=== PATIENT | female | born 1975 | race Caucasian/White ===

== ENCOUNTER 2025-06-12 21:13 | Emergency (ER) | payer OTHER, SELFPAY ==
--- OUTSIDE RECORDS SUMMARY | 2025-05-28 07:45 | XMS_ITS | Continuity of Care Document ---
Author Organization [facility] Address [address] [place] [address] Phone Care Team Providers Care [facility] Parent Name Role Phone Luz Maria PATRICIO, Dalia Unavailable Unavailable Allergies, Adverse Reactions, Alerts Substance Reaction Status Criticality No Known Allergies Active No Inform ation Medications Medication Instructions Dosage Effective Dates (start - stop) Status Comments benzonatate 200 mg capsule take 1 capsul e by oral route twice daily as needed for cough - Active hydroxyzine HCl 10 mg tablet Take one tab at bedtime - Active ferrous gluconate 324 mg (38 mg iron) tablet take one tablet 3 times daily - Active amlodipine 10 mg tablet take 1 tablet by oral route every day 10 MG - Active hydrochlorothiazide 12.5 mg tablet take 1 tablet by oral route every day 12.5 MG - Active ProAir RespiClick 90 mcg/actuation breath activated inhale 2 puff by inhalation route every 4 - 6 hours as needed as needed 180 MCG - Active Advance Directives Directive Yes / No Effective Date File Name No Information Encounters Encounter Description Practice Location Reason(s) For Visit Diagnoses Date Provider [facility], [address], [id number], [place] tel:[phone] [facility] No Information Luz Maria Gómez. [facility] [place], [address], [place]. tel:[phone] [facility], [facility] [address], [id number], [place] tel: [facility] Amand[facility]em Follow up (chief complaint) Encounter for follow-upElevated blood pressure readingUterine leiomyoma, unspecified locationThickened endometrium 5 Andrew Sorensen. [facility], [place], [address], [place]. tel: [phone] [facility], [facility], [place], [place], [id number], [place] tel: [facility] No Information 5 Luz Maria Gómez. [facility] [address], [place], [address], [place]. tel: [phone] [facility], [facility] [address], [place], [place], [id number], [place] tel: [facility] cough (chief complaint)ER follow up (chief complaint)hyp ertension (chief complaint) Body mass index [BMI] 32.0-32.9, adultHospital discharge follow-upDry coughEssential hypertension 5 Luz Maria Gómez. [facility] [address], [place], [address], [place]. tel: [phone] [facility], [facility] [place], [id number], [place] tel: [facility] Ajay annual exam (chief complaint)phyllis ast (chief complaint)men orrhagia with regular cycles (chief complaint) Body mass index [BMI] 32.0-32.9, adultEncounter for gynecological examination (general) (routine) with abnormal findingsEncounter for other screening for malignant neoplasm of breastMenorrhagia with regular cycleUrinary incontinence, mixedEncounter for other general counseling and advice on contraceptionHistory of uterine fibroidHot flashes 5 Andrew Sorensen. [facility], [place], [address], [place]. tel: [phone] [facility], [facility], [place], [id number], [place] tel: [facility] Follow up (chief complaint)hyp ertension (chief complaint)hyp erlipidemia (chief complaint)ane barry (chief complaint) DyslipidemiaEssential hypertensionIron deficiency anemia, unspecifiedPrediabetes Body mass index [BMI] 33.0-33.9, adultIrregular menstrual bleeding 5 Luz Maria Romocayla. [address], [place], [address], [place]. tel: [phone] [facility], [address], [place], [place], [id number], [place] tel: [phone] [facility] Guaiac card return (chief complaint) Encounter for screening for malignant neoplasm of colon 4 [facility]. [address], [place], [address], [place]. tel: [phone] [facility], [address], [place], [place], [id number], [place] tel: [phone] [facility] results (chief complaint)hyp ertension (chief complaint)ane barry (chief complaint) Body mass index [BMI] 33.0-33.9, adultEssential hypertensionIron deficiency anemia, unspecifiedPrediabetes Encounter for screening for malignant neoplasm of colon 4 Luz Maria Dalia. [address], [place], [address], [place]. tel: [phone] [facility], [address], [place], [place], [id number], [place] tel: [phone] [facility] No Information 4 Luz Maria Gómez. [address], [place], [address], [place]. tel: [phone] [facility], [address], [place], [place], [id number], [place] tel: [phone] [facility] pap smear (chief complaint) Body mass index [BMI] 32.0-32.9, adultCervical cancer screeningVaginal drynessEncounter for test, result negative 4 Andrew Sorensen. [address], [place], [address], [place]. tel: [phone] [facility], [address], [place], [place], [id number], [place] tel: [facility] follow up (chief complaint) Essential hypertensionFibroidsMi ld anemiaH. pylori infection 4 No Information [facility], [facility] [address], [place], [place], [id number], [place] tel:[phone] [facility] No Information 4 No Information [facility], [facility] [address], [place], [place], [id number], [place] tel:000 [facility] No Information 3 No Information [facility], [facility] [address], [place], [place], [id number], [place] tel: [facility] Follow up (chief complaint) Body mass index [BMI] 33.0-33.9, adultH. pylori infectionIron deficiency anemia, unspecifiedEssential hypertension 3 No Information [facility], [facility] [place], [id number], [place] tel:000 [facility] ([facility] complaint) Encounter for test, result negativeEncounter for gynecological examination (general) (routine) without abnormal findingsScreening mammogram for breast cancer 3 Blair Valencia. [facility] [address], [place], [address], [place]. tel: [phone] [facility], [facility] [address], [place], [id number], [place] tel: [facility] Follow up (chief complaint) Body mass index [BMI] 32.0-32.9, adultEssential hypertensionFibroidsH. pylori infectionOther iron deficiency anemia 3 No Information [facility], [facility] [place], [id number], [place] tel: [facility] Uterine leiomyoma, unspecified location 3 No Information [facility], [facility] [place], [id number], [place] tel: [facility] Guaiac card return (chief complaint) Encounter for screening for malignant neoplasm of colon 3 [facility]. [address], [place], [address], [place]. tel: [phone] [facility], [address], [place], [place], [id number], [place] tel: [phone] [facility] preventive exam (chief complaint)n ew patient pmh (chief complaint) Body mass index [BMI] 32.0-32.9, adultEncounter for screening for respiratory tuberculosisIron deficiency anemia, unspecified iron deficiency anemia typeFibroidsAnnual physical examVaginal drynessChronic GERDColon cancer screening 3 No Information [facility], [address], [place], [place], [id number], [place] tel: [phone] [facility] No Information 3 Luz Maria Demetriusaa. [address], [place], [address], [place]. tel: [phone] [facility], [address], [place], [place], [id number], [place] tel: [phone] [facility] hypertension (chief complaint)ane barry (chief complaint) Body mass index [BMI] 32.0-32.9, adultEssential hypertensionMild anemia 3 Luz Maria Hanaa. [address], [place], [address], [place]. tel: [phone] [facility], [address], [place], [place], [id number], [place] tel: [phone] [facility] hypertension (chief complaint)res ults (chief complaint) Body mass index [BMI] 32.0-32.9, adultEssential hypertensionIron deficiency anemia, unspecifiedEncounter for screening for other disorder 2 Luz Maria Hanaa. [address], [place], [address], [place]. tel: [phone] [facility], [address], [place], [place], [id number], [place] tel: [phone] [facility] No Information 2 Luz Maria Hanaa. [address], [place], [address], [place]. tel: [phone] [facility], [address], [place], [id number], [place] tel: [facility] Guaiac card return (chief complaint) Encounter for screening for malignant neoplasm of colon 2 [facility]. [address] [facility], [place], [address], [place]. tel: [phone] [facility], [address], [place], [place], [id number], [place] tel:000 [facility] hypertension (chief complaint)Res ults (chief complaint)ane barry (chief complaint)hyp erlipidemia (chief complaint) Body mass index [BMI] 32.0-32.9, adultEssential hypertensionDyslipidem iaIron deficiency anemia, unspecifiedPrediabetes Colon cancer screeningBreast cancer screening 2 Luz Maria Romo. [facility], [place], [address], [place]. tel: [phone] [facility], [address], [place], [place], [id number], [place] tel: [facility] No Information 2 Luz Marialamine Romoaa. [address], [place], [address], [place]. tel: [phone] [facility], [address], [place], [place], [id number], [place] tel:000 [facility] lab results (chief complaint)hyp ertension (chief complaint)ane barry (chief complaint) Essential hypertensionIron deficiency anemia, unspecifiedBody mass index [BMI] 32.0-32.9, adultPrediabetesDyslip idemia 2 Luz Maria Demetriusaa. [address], [place], [address], [place]. tel: [phone] [facility], [address], [place], [place], [id number], [place] tel:000 [facility] No Information 2 [facility]. [address], [place], [address], [place]. tel: [phone] [facility], [address], [place], [place], [id number], [place] tel:000 [facility] virtual visit (chief complaint)Pap smear results (chief complaint)hyp ertension (chief complaint) Encounter to discuss test resultsEssential hypertension 1 [facility]. [address], [place], [address], [place]. tel: [phone] [facility], [address], [place], [place], [address], [place] tel:000 [facility] pap test (chief complaint)hyp ertension (chief complaint)Lab results (chief complaint) Body mass index [BMI] 32.0-32.9, adultEncounter for screening for malignant neoplasm of cervixEssential hypertensionOther iron deficiency anemiaPrediabetes 1 [facility]. [address], [place], [address], [place]. tel: [phone] [facility], [address], [place], [place], [id number], [place] tel: [facility] joint pain (chief complaint)hyp ertension (chief complaint) Body mass index (BMI) 33.0-33.9, adultEssential hypertensionMultiple joint painBreast cancer screening 1 [facility]. [address], [place], [address], [place]. tel: [phone] [facility], [address], [place], [place], [id number], [place] tel:000 [facility] GERD (chief complaint)Lab results (chief complaint)hyp ertension (chief complaint) Body mass index (BMI) 31.0-31.9, adultIron deficiency anemia, unspecifiedH. pylori infectionEssential hypertension February- 9 [facility]. [address], [place], [address], [place]. tel: [phone] [facility], [address], [place], [place], [id number], tel: [facility] No Information [facility]. [facility] [address], [place], [address], . tel: [phone] [facility], [facility] [address], [place], [place], [address], tel: [facility] Establish care (chief complaint)PARMJIT D (chief complaint) Body mass index (BMI) 31.0-31.9, adultEncounter for screening for diabetes mellitusGastroesophage al reflux disease, esophagitis presence not specifiedScreening for hyperlipidemiaBreast cancer screening 9 [facility]. [facility] [address], [place], [address], . tel: [phone] [facility], [facility] [address], [place], [place], [id number], tel: [facility] Anemia (chief complaint) Body mass index (BMI) 30.0-30.9, adultPernicious anemiaOther obesity due to excess calories 6 No Information [facility], [facility] [address], [place], [place], [address], [place] tel: [facility] Follow Up of anemia (chief complaint) Body mass index (BMI) 30.0-30.9, adultPernicious anemiaUterine leiomyoma, unspecified location 5 No Information [facility], [facility] [address], [place], [place], [id number], [place] tel: [phone] [facility] No Information 5 No Information [facility], [facility] [address], [place], [place], [id number], [place] tel: [facility] Follow up visit for Lab Results (chief complaint)Ref erral Request for Mammography (chief complaint) Iron deficiency anemiaVitamin D deficiencyFatigueEncou nter for gynecological examination 5 No Information [facility], [facility] [address], [place], [place], [id number], [place] tel: [phone] [facility] Iron deficiency anemia 5- 5 No Information [facility], [facility] [place], [id number], tel: [phone] [facility] No Information 8- 5 No Information [facility], [address] [place] [address] [place], [address], tel: [phone] [facility] Preventive exam (chief complaint) ROUTINE MEDICAL EXAMInsomniaTendonitis Joint pain 7-201 5 No Information [facility], [facility] [address] [facility], [place], [place], [id number], [place] tel: [phone] [facility] HYPOTHYROIDISMPELVIC PAINOVERNUTRITION (POLYPHAGIN) 6-200 8 Provider [employer]. . [facility], [address] [place] [address], [id number], tel: [phone] [facility] HYPOTHYROIDISMOVERNUTR ITION (POLYPHAGIN) 8-200 8 Provider [employer]. . [facility], [facility] [address] [place], [place], [id number], tel: [phone] [facility] HYPOTHYROIDISMPELVIC PAINOVERNUTRITION (POLYPHAGIN)SCREENING ROUTINE EXAMSCREENING FOR BREAST CANCERSCREENING FOR CERVICAL CANCER 6-200 8 Provider [employer]. . [facility], [address] [place] [address] [place], [id number], tel: [phone] [facility] HYPOTHYROIDISM 6200 8 Provider [employer]. . [facility], [facility] [address], [address], tel: [phone] [facility] HYPOTHYROIDISM 6-200 7 Provider [employer]. . Family History Family Member Type Diagnosis Age At Onset Mother Problem (finding) Heart disease Mother Problem (finding) hypertension Father Problem (finding) diabetes melli tus type 2 (Cause Of ) Mother Problem (finding) raised blood lipids Immunizations Vaccine Date Status Comments TDAP administered Source: [facility] unization Record Payers Payer name Insurance type Covered alliance party ID Authoriza tion(s) SELF PAY Category A 09 [id number] SELF PAY Category A [id number] [employer] [place] [employer] [facility] [id number] Social History Type Description Quantity Date Captured Comments Alcohol Use Details Unknown Caffeine Use Details Unknown Tobacco Use Status No Information Smoking Status No Information Sex Female Sexual Orientation Straight or heterosexual Gender Identity Female Chief Complaint And Reason For Visit No Information Plan Of Treatment Date Type Action Status Goal Unhealthy drug u se screening. Due on due Goal Flu Vaccine. Due on due Goal Hepatitis C screening due Goal Occult Blood, [place], [place] (FIT). Due on due Goal MMR Vaccine. Due on due Goal Mammogram. Due on due Goal Depression scree yobani. Due on due Goal Cervical Cancer Screening. Due on due Goal FOBT. Due on due Goal Tdap due Goal Tobacco screening. Due on due Goal Lipid panel due Goal Occult Blood, [place], [place] (FIT). Due on due Goal Depression scree yobani. Due on due Goal Mammogram. Due on due Goal Cologuard. Due on due Goal Unhealthy drug u se screening. Due on due Goal MMR Vaccine. Due on due Goal Hepatitis C screening due Goal Tobacco screening. Due on due Goal Lipid panel. Due on due Goal FOBT. Due on due Goal Cervical Cancer Screening. Due on due Goal Tdap due Goal Flu Vaccine. Due on due Goal Tobacco screening. Due on due Goal Hepatitis C screening due Goal FOBT. Due on due Goal Tdap due Goal Occult Blood, [place] m[place], [place] (FIT). Due on due Goal Cervical Cancer Screening. Due on due Goal Cologuard. Due on due Goal Lipid panel. Due on due Goal Depression scree yobani. Due on due Goal Flu Vaccine. Due on due Goal MMR Vaccine. Due on due Goal Mammogram. Due on due Goal Unhealthy drug u se screening. Due on due Goal Depression scree yobani. Due on due Goal Cologuard. Due on due Goal FOBT. Due on due Goal Flu Vaccine. Due on due Goal Mammogram. Due on due Goal Unhealthy drug u se screening. Due on due Goal Occult Blood, [place], [place] (FIT). Due on due Goal Tobacco screening. Due on due Goal Hepatitis C screening due Goal MMR Vaccine. Due on due Goal Cervical Cancer Screening. Due on due Goal Lipid panel. Due on due Goal Tdap due Goal Dietary manageme nt education, guidance, and counseling completed Goal FOBT (3 Cards Gi siria). Due on due Goal MMR Vaccine. Due on due Goal Colonoscopy. Due on due Goal Flu Vaccine. Due on due Goal Cologuard. Due on due Goal Mammogram. Due on due Goal Occult Blood, Fe m[place], [place] (FIT). Due on due Goal Depression scree yobani. Due on due Goal Tdap due Goal Cervical Cancer Screening. Due on due Goal Flu Vaccine. Due on due Goal MMR Vaccine. Due on due Goal FOBT (3 Cards Gi siria). Due on due Goal Mammogram. Due on due Goal Occult Blood, Fe m[place], [place] (FIT). Due on due Goal Depression scree yobani. Due on due Goal Tdap due Goal Cervical Cancer Screening. Due on due Goal Colonoscopy. Due on due Goal Cologuard. Due on due Goal Dietary manageme nt education, guidance, and counseling completed Goal FOBT (3 Cards Gi siria). Due on due Goal Mammogram. Due on due Goal Occult Blood, Fe m[place], [place] (FIT). Due on due Goal Depression scree yobani. Due on due Goal Tdap due Goal Cervical Cancer Screening. Due on due Goal MMR Vaccine. Due on due Goal Colonoscopy. Due on due Goal Flu Vaccine. Due on due Goal Cologuard. Due on due Goal Cologuard. Due on due Goal Flu Vaccine. Due on due Goal Colonoscopy. Due on due Goal MMR Vaccine. Due on due Goal Mammogram. Due on due Goal Occult Blood, Fe m[place], [place] (FIT). Due on due Goal Depression scree yobani. Due on due Goal Tdap due Goal Cervical Cancer Screening. Due on due Goal Dietary manageme nt education, guidance, and counseling completed Goal Cologuard. Due on due Goal Mammogram. Due on due Goal Occult Blood, Fe m[place], [place] (FIT). Due on due Goal Depression scree yobani. Due on due Goal Tdap due Goal Cervical Cancer Screening. Due on due Goal Colonoscopy. Due on due Goal Flu Vaccine. Due on due Goal FOBT (3 Cards Gi siria). Due on due Goal MMR Vaccine. Due on due Goal Cologuard. Due on 4 due Goal Flu Vaccine. Due on due Goal Colonoscopy. Due on due Goal MMR Vaccine. Due on due Goal FOBT (3 Cards Gi siria). Due on due Goal Mammogram. Due on 6 due Goal Occult Blood, [place] m[place], [place] (FIT). Due on due Goal Depression scree yobani. Due on due Goal Tdap due Goal Cervical Cancer Screening. Due on due Goal Lifestyle education regardin g diet completed Goal Tdap due Goal Occult Blood, Fe m[place], [place] (FIT). Due on due Goal Depression scree yobani. Due on due Goal Mammogram. Due on 4 due Goal MMR Vaccine. Due on due Goal Colonoscopy. Due on due Goal Cologuard. Due on due Goal FOBT (3 Cards Gi siria). Due on due Goal Flu Vaccine. Due on due Goal Cervical Cancer Screening. Due on due Goal Flu Vaccine. Due on due Goal Colonoscopy. Due on due Goal Cologuard. Due on 3 due Goal Tdap due Goal Depression scree yobani. Due on due Goal FOBT (3 Cards Gi siria). Due on due Goal Occult Blood, Fe m[place], [place] (FIT). Due on due Goal Mammogram. Due on 4 due Goal MMR Vaccine. Due on due Goal Cervical Cancer Screening. Due on due Goal Dietary manageme nt education, guidance, and counseling completed Goal Depression scree yobani. Due on due Goal MMR Vaccine. Due on due Goal Tdap due Goal Mammogram. Due on 4 due Goal Cologuard. Due on 3 due Goal Occult Blood, Fe m[place], [place] (FIT). Due on due Goal Colonoscopy. Due on due Goal Flu Vaccine. Due on due Goal FOBT (3 Cards Gi siria). Due on due Goal Cervical Cancer Screening. Due on due Goal Cologuard. Due on 3 due Goal FOBT (3 Cards Gi siria). Due on due Goal Flu Vaccine. Due on due Goal Tdap due Goal Colonoscopy. Due on due Goal Occult Blood, [place] m[place], [place] (FIT). Due on due Goal MMR Vaccine. Due on due Goal Depression scree yobani. Due on due Goal Cervical Cancer Screening. Due on due Goal Mammogram. Due on 4 due Goal Dietary manageme nt education, guidance, and counseling completed Goal Depression scree yobani. Due on due Goal Occult Blood, [place] m[place], [place] (FIT). Due on due Goal Colonoscopy. Due on due Goal MMR Vaccine. Due on due Goal Mammogram. Due on 4 due Goal Flu Vaccine. Due on due Goal FOBT (3 Cards Gi siria). Due on due Goal Tdap due Goal Cologuard. Due on due Goal Cervical Cancer Screening. Due on due Goal Depression scree yobani. Due on due Goal Colonoscopy. Due on due Goal MMR Vaccine. Due on due Goal Occult Blood, [place] m[place], [place] (FIT). Due on due Goal Tdap due Goal Flu Vaccine. Due on due Goal Cologuard. Due on due Goal Mammogram. Due on 4 due Goal FOBT (3 Cards Gi siria). Due on due Goal Cervical Cancer Screening. Due on due Goal Tdap due Goal FOBT (3 Cards Gi siria). Due on due Goal Flu Vaccine. Due on due Goal Cologuard. Due on 3 due Goal Mammogram. Due on 4 due Goal Colonoscopy. Due on due Goal MMR Vaccine. Due on due Goal Occult Blood, [place] m[place], [place] (FIT). Due on due Goal Depression scree yobani. Due on due Goal Cervical Cancer Screening. Due on due Goal Dietary manageme nt education, guidance, and counseling completed Goal Depression scree yobani. Due on due Goal Tdap. Due on due Goal Flu Vaccine. Due on 023 due Goal FOBT (3 Cards Gi siria). Due on due Goal Td vaccine. Due on 23 due Goal Occult Blood, [place] m[place], [place] (FIT). Due on due Goal Mammogram. Due on 4 due Goal MMR Vaccine. Due on due Goal Colonoscopy. Due on due Goal Cologuard. Due on 3 due Goal Cervical Cancer Screening. Due on due Goal Dietary manageme nt education, guidance, and counseling completed Goal Mammogram. Due on 4 due Goal Cervical Cancer Screening. Due on due Goal Depression scree yobani. Due on due Goal Flu Vaccine. Due on due Goal MMR Vaccine. Due on due Goal Cologuard. Due on 2 due Goal Tdap. Due on due Goal Colonoscopy. Due on due Goal FOBT (3 Cards Gi siria). Due on due Goal Td vaccine. Due on due Goal Occult Blood, [place] m[place], [place] (FIT). Due on due Goal Dietary manageme nt education, guidance, and counseling completed Goal Td vaccine. Due on due Goal Cologuard. Due on 2 due Goal Occult Blood, [place] m[place], [place] (FIT). Due on due Goal Tdap. Due on due Goal FOBT (3 Cards Gi siria). Due on due Goal Colonoscopy. Due on due Goal Flu Vaccine. Due on due Goal Depression scree yobani. Due on due Goal Mammogram. Due on 3 due Goal MMR Vaccine. Due on due Goal Cervical Cancer Screening. Due on due Goal Cervical Cancer Screening. Due on due Goal Depression scree yobani. Due on due Goal Mammogram. Due on 3 due Goal MMR Vaccine. Due on due Goal Tdap. Due on due Goal Flu Vaccine. Due on due Goal Colonoscopy. Due on due Goal Occult Blood, [place] m[place], [place] (FIT). Due on due Goal Cologuard. Due on due Goal Td vaccine. Due on due Goal Dietary manageme nt education, guidance, and counseling completed Goal Cervical Cancer Screening. Due on due Goal MMR Vaccine. Due on due Goal Mammogram. Due on 3 due Goal Depression scree yobani. Due on due Goal Td vaccine. Due on due Goal Flu Vaccine. Due on due Goal Tdap. Due on due Goal Dietary manageme nt education, guidance, and counseling completed Goal Depression scree yobani. Due on due Goal MMR Vaccine. Due on due Goal Flu Vaccine. Due on due Goal Td vaccine. Due on due Goal Tdap. Due on due Goal Cervical Cancer Screening. Due on due Goal Tdap. Due on due Goal Flu Vaccine. Due on due Goal MMR Vaccine. Due on due Goal Td vaccine. Due on due Goal Depression scree yobani. Due on due Goal Dietary manageme nt education, guidance, and counseling completed Goal Flu Vaccine. Due on due Goal Depression scree yobani. Due on due Goal Td vaccine. Due on due Goal MMR Vaccine. Due on due Goal Tdap. Due on due Goal Cervical Cancer Screening. Due on due Goal Dietary manageme nt education, guidance, and counseling completed Goal Flu Vaccine. Due on due Goal Tdap. Due on due Goal MMR Vaccine. Due on due Goal Td vaccine. Due on due Goal Depression scree yobani. Due on due Goal Dietary manageme nt education, guidance, and counseling completed Goal Td vaccine. Due on due Goal Depression scree yobani. Due on due Goal Tdap. Due on due Goal MMR Vaccine. Due on due Goal Flu Vaccine. Due on due Goal Dietary manageme nt education, guidance, and counseling completed Goal Dietary manageme nt education, guidance, and counseling completed Goal Dietary manageme nt education, guidance, and counseling completed Referral Referred To: [address], [address] [phone] Ordered: Referrals: Urogynecology. [facility]. Location: [facility]. Evaluate and treat ordered Referral Ordered: Referrals: [facility]. Evaluate and treat ordered Referral Ordered: SCR MAMMO BI INCL CAD ordered Referral Referred To: Annie Pinto MD [address] [place] [address], [id number] [phone] Ordered: Referrals: [facility]. Annie Pinto MD. Location: [facility]. Consult Appointment date/timeframe: 09/11/2023 ordered Referral Ordered: TRANSVAGINAL US, NON-OB ordered Referral Ordered: SCR MAMMO BI INCL CAD Bilateral ordered Appointment Jessy Renteria BOOKED Appointment Jessy Renteria BOOKED Patient Education Safer Sex: Care Instruc tions completed Patient Education A Healthy Lifestyle: Ca re Instructions completed Patient Education A Healthy Lifestyle: Ca re Instructions completed Patient Education A Healthy Lifestyle: Ca re Instructions completed Patient Education DASH Diet: Care Instruc tions completed Patient Education Iron Deficiency Anemia: After Your Vis completed Future Order: Lab Order CBC w/di ff ([id number]), Sent on: Sent Future Order: Lab Order CMP14+LP +Hb A1c+eAG-Panel ([id number]), Sent on: Sent Future Order: Lab Order Iron/TIB C ([id number]), Sent on: Sent Future Order: Lab Order IG Pap, CtNg, AptimaHPV, rfx16/18,45 ([id number]), Scheduled for: Ordered Future Order: Lab Order CBC w/di ff ([id number]), Scheduled for: , Scheduled for: Sent Future Order: Lab Order CMP ([id number]), Scheduled for: , Scheduled for: Sent Future Order: Lab Order FSH and LH ([id number]), Scheduled for: , Scheduled for: Sent Future Order: Lab Order T4 and T SH ([id number]), Scheduled for: , Scheduled for: Sent Future Order: Lab Order H. pylor i Breath Test ([id number]), Scheduled for: , Scheduled for: Sent Future Order: Lab Order CMP14+LP +Hb A1c+eAG-Panel ([id number]), Appointment on: , Sent on: Sent Future Order: Lab Order Iron and TIBC-Panel ([id number]), Appointment on: , Sent on: Sent Future Order: Lab Order Vitamin D, [id number] ([id number]), Appointment on: , Sent on: Sent Future Order: Lab Order Vitamin B12 and Folate-Panel ([id number]), Appointment on: , Sent on: Sent Future Order: Lab Order PSC HOLD FOR [facility] ([id number]), Appointment on: , Sent on: Sent Future Order: Lab Order Anemia P rofile B-Panel ([id number]), Appointment on: , Sent on: Sent Future Order: Lab Order Comp. Me tabolic Panel [id number] ([id number]), Appointment on: , Sent on: Sent Future Order: Lab Order [facility] FOR [facility] ([id number]), Appointment on: , Sent on: Sent History Of Present Illness Encounter Date Complaint History Of Prese nt Illness Follow up Patient here for results hx. of fibroids and anemiaLMP: 2 months ago Results discussed with patient mammogram Density C, declined breast US BI-RADS: 1 negative G/C and vaginitis negative Complaining of urinary incontinence+ UTI treatment sent pt. states she does not need to see specialist doing well after treatment Ferritin: 51Estradiol: 17.3FSH: 28.4LH: 16.7Transvaginal US showed Multiple uterine fibroids Thickened endometrium 20mm Referred to Dr. Cade or Dr. Pinto here at [facility] concerning uterine fibroids, thickened endometrium and management of care hx of EMB per patient hypertension It is currently getting worse. Risk factors include family history HTN, gout or CAD, inactive lifestyle and obesity. The hypertension is exacerbated by stress. Pertinent negatives include dyspnea. ER follow up Dx with pneumoni a completed antibiotic , doing better but still c/o of dry cough , no dyspnea or fever cough Onset: sudden. T he patient describes the cough as dry. It occurs occasionally. The problem has improved. There are no aggravating factors. Associated symptoms include cough. Pertinent negatives include dyspnea, fever, nasal congestion, rhinorrhea, sinus pressure, sore throat and wheezing. Additional information: recent dx of pneumonia. annual exam Currently pregna nt: no. : 2. Parity: Term: 2. Livin. The patient states she uses condoms, male for control. Last LMP was 02/19/2025. Her menses is regular with heavy flow. Negative for dysmenorrhea. Negative for: breast discharge, breast lump(s) and breast pain.Negative for Hormone replacement therapy. Menopausal symptoms negative for: hot flashes, insomnia and night sweats. Pertinent negatives include abnormal bleeding (hematology), abnormal vaginal bleeding, anxiety, decreased libido, depression, difficulty falling sleep, dyspareunia, history of infertility, nocturia, sexual dysfunction, sleep disturbances, urinary incontinence, urinary urgency, vaginal discharge and vaginal itching. Diet high calorie.The patient states her exercise level is moderate. She has not been exposed to passive smoke. She has not been exposed to passive vaping. She does not drink alcohol. Additional information: WWE done today Pt. complaining of heavy menses lasting 4 daysDiscussed the use of NSAIDShx. of fibroids and anemia. menorrhagia with regular cycles breast Pertinent negati ves include asymmetry, bloody discharge, breast pain, clear discharge, dimpling, discharge, fever, greenish discharge, lymphadenopathy, milky discharge, nipple itching, nipple retraction and serous discharge. Additional information: no HRT. Follow up Discussed all la b results in details and answered all questions Hemoglobin 10.2 , MCV 72 , A1c 5.8 , LDL 110 hyperlipidemia The hyperlipidem ia is stable. Risk factors include family history of HTN, poor diet and sedentary life style. Hyperlipidemia management includes improved diet. Pertinent negatives include chest pain, dyspnea, nausea and vomiting. anemia Type of anemia w as acquired for deficiency anemia (iron deficient). The problem is getting worse. Relevant medical history includes history of anemia, menorrhagia and irregular period. Pertinent negatives include abdominal pain, chest pain, chills, dyspnea, fatigue, gait disturbance, nausea and vomiting. hypertension It is currently stable. Risk factors include family history HTN, gout or CAD, inactive lifestyle and obesity. The hypertension is exacerbated by nothing. Pertinent negatives include chest pain, dyspnea, fatigue, nausea and vomiting. Additional information: average blood pressure at home 130/80 Guaiac card return Patient prese nts to clinic with guaiac cards x 3 for testing. results Discussed all la b results in details and answered all questions hemoglobin 10.6 , MCV 75 , low iron , A1c 5.9 , LDL 97 hypertension It is currently stable. Risk factors include family history HTN, gout or CAD, inactive lifestyle and obesity. The hypertension is exacerbated by nothing. Pertinent negatives include chest pain, dyspnea, fatigue, nausea and vomiting. anemia Type of anemia w as acquired for deficiency anemia (microcytic). The problem is stable. Relevant medical history includes history of anemia. Pertinent negatives include abdominal pain, chest pain, chills, dyspnea, fatigue, gait disturbance, nausea and vomiting. Additional information: pt has h/o of h.pylori that got treated , requests to be retested. pap smear Patient had [facility]lene [facility] women exam with Dr Pinto in August LMP: 01/05mammogram results discussed with patient: BI-RADS: 2 benign findingsDoes annual labs with PCP here at [facility] pap smear done today follow up Nurse start time : 9:20 am Nurse end time:Total nurse time:Call back number: [phone] comments : here for lab results reports amlodipine 10mg positive effect denied pain no other concerns Clinical staff spoke with the patient and obtained verbal consent to receive medical care over the telephone, with the understanding that this method of communication is not compliant with all applicable privacy laws and, due to the current COVID-19 emergency, the patient agreed to continue to be provided care in this manner. Patient's identity was verified. Any vital signs documented on this encounter were provided by the patient. Follow up Patient followin g up on B/P and lab results. discussed bp is elevated at home usually 130s/80s- 140s/90s. sedentary lifestyle. taking hctz 12.5mg and amlodipne 5mg every am. denies headaches chest pain browne leg swelling.discussed anemia hgb 9 decreased from last check at 10.5. reports is not taking iron anymore due to not wanting to take it. saw team otr truck driver and was recommended to monitor periods until hits menopause. annual exam Currently pregna nt: no. : 2. Parity: Term: 2. Livin. The patient states she uses condoms, male for control. Last LMP was 09/11/2023. Negative for dysmenorrhea. Negative for: breast discharge, breast lump(s), breast pain and breast self exam. Menopausal symptoms negative for: hot flashes, insomnia, night sweats and vaginal dryness. Associated symptoms include abnormal bleeding (hematology). Pertinent negatives include abnormal vaginal bleeding, anxiety, decreased libido, depression, difficulty falling sleep, dyspareunia, history of infertility, nocturia, sexual dysfunction, sleep disturbances, urinary incontinence, urinary urgency, vaginal discharge and vaginal itching. Diet high calorie.The patient states her exercise level is moderate. The patient does not use tobacco. She has not been exposed to passive smoke. She has not been exposed to passive vaping. She does not drink alcohol. Follow up Patient here for lab and images results, per [facility] H pylori still pending. lab results significant for hgb improved 10.7 from 7.8 at last check about 1 mo ago, vit b12 and folate are normal. is taking iron tablet daily. reports lmp was prior to lab draw at end of May and had heavy flow. Discussed tvus showing large fibroids. referral to team otr truck driver is pending.request refill for amlodipine.patient denied pain no other concerns Guaiac card return Patient prese nts to clinic with guaiac cards x 3 for testing. preventive exam Currently pregna nt: no. : 2. Parity: Term: 2. Livin. The patient states she uses condoms, male for control. Last LMP was 05/03/2023. Diet high calorie.The patient states her exercise level is moderate. The patient does not use tobacco. She has not been exposed to passive smoke. She has not been exposed to passive vaping. She does not drink alcohol. Additional information: Patient here for PE. request results for labsrequest referral for factory superintendent due to pap smear . new patient pmh PMH: anemia, t hnMeds: Femmenesscence macapause, sss tonic, mg, probiotic, hctz 12.5mg, famotidine 20mgPSH: [id number] x2FH: father dm, mother had cervical cancerAll: nkdaMammogram: about 1 year ago julap smear: fobt [id number] lasting about 2 days, May 03 LMP, gets bone pain during period, gets period every mo, for last 5 years not as heavy periods as before. has fibroids. ferrous sulfate causes nausea and can't tolerate. taking otc supplement SSS tonic x 2 weeks. Endorses fatigue, pallor, browne.gerd: daily symptoms of burning epigastric pain with heartburn, takes famotidine 20mg daily in AM and helps symptoms but sometimes has symptoms at night aggravated by spicy foods. denies blood in stool, constipation or melena. hypertension It is currently improving. Risk factors include family history HTN, gout or CAD, inactive lifestyle and obesity. The hypertension is exacerbated by nothing. Pertinent negatives include chest pain, dyspnea, fatigue, headache, nausea and vomiting. anemia Type of anemia w as acquired for deficiency anemia (iron deficient). The problem is stable. Relevant medical history includes history of anemia. Pertinent negatives include abdominal pain, chest pain, chills, dyspnea, fatigue, gait disturbance, headache, nausea and vomiting. results hemoglobin 9.1 - -> 10.5 , MCV 73-- >75 on iron supplement hypertension It is currently stable. Risk factors include family history HTN, gout or CAD, inactive lifestyle and obesity. The hypertension is exacerbated by stress. Pertinent negatives include chest pain, dyspnea, fatigue, headache, nausea, transient weakness and vomiting. Guaiac card return Patient prese nts to clinic with guaiac cards x 3 for testing. Results Hemoglobin 9.1, A1c 5.7 , LDL 106 , Iron 15 , iron saturation 4 hyperlipidemia The hyperlipidem ia is getting worse. Risk factors include family history of HTN, poor diet and sedentary life style. The patient is not adhering to diet for their hyperlipidemia. Pertinent negatives include chest pain, dyspnea, nausea and vomiting. hypertension It is currently getting worse. Risk factors include family history HTN, gout or CAD, inactive lifestyle and obesity. Associated symptoms include fatigue. Pertinent negatives include chest pain, dyspnea, nausea and vomiting. Additional information: no regular blood pressure at home anemia Type of anemia w as acquired for deficiency anemia (iron deficient). The problem is getting worse. Relevant medical history includes history of anemia and menorrhagia. Associated symptoms include fatigue. Pertinent negatives include abdominal pain, chest pain, chills, dyspnea, gait disturbance, nausea and vomiting. lab results Hemoglobin 10.4 -->12.3 , MCV 75 -->84, Iron 17 -->22, iron sat 4-->6A1c 5.7 , LDL 100 hypertension It is currently stable. Risk factors include family history HTN, gout or CAD, inactive lifestyle and obesity. The hypertension is exacerbated by nothing. Pertinent negatives include chest pain, dyspnea, fatigue, nausea and vomiting. anemia Type of anemia w as acquired for deficiency anemia (microcytic). The problem is improving. Relevant medical history includes history of anemia. Pertinent negatives include abdominal pain, chest pain, chills, dyspnea, fatigue, gait disturbance, nausea and vomiting. virtual visit Nurse start time :11:19Nurse end time:11:21Total nurse time:2 minutesCall back number:[phone] staff spoke with the patient and obtained verbal consent to receive medical care over the telephone, with the understanding that this method of communication is not compliant with all applicable privacy laws and, due to the current COVID-19 emergency, the patient agreed to continue to be provided care in this manner. Patient's identity was verified. Any vital signs documented on this encounter were provided by the patient.intake comments: pap results Pap smear results Negative cytol ogy . hypertension It is currently stable. Risk factors include family history HTN, gout or CAD, inactive lifestyle and obesity. The hypertension is exacerbated by nothing. Pertinent negatives include chest pain, dyspnea and transient weakness. pap test Currently pregna nt: no. : 2. Parity: Term: 2. Livin. The patient states she uses condoms, male for control. Diet high calorie.The patient states her exercise level is moderate. She has not been exposed to passive smoke. She has not been exposed to passive vaping. She does not drink alcohol. Lab results Discussed lab re sults Hemoglobin 10.4, MCV 75,iron 17 , A1c 5.7 hypertension It is currently improving. Risk factors include family history HTN, gout or CAD, inactive lifestyle and obesity. The hypertension is exacerbated by nothing. Pertinent negatives include chest pain and dyspnea. hypertension It is currently getting worse. Risk factors include family history HTN, gout or CAD, inactive lifestyle and obesity. The hypertension is exacerbated by nothing. Pertinent negatives include chest pain, headache and transient weakness. joint pain Onset: 1 year ag o. It occurs intermittently. Location: bilateral (multiple joints). There is no radiation. The pain is aching and throbbing. Context: there is no injury. The pain is aggravated by doing nothing. The pain is relieved by mobility and OTC medicines (ibuprofen). Associated symptoms include difficulty initiating sleep and nocturnal pain. Pertinent negatives include decreased mobility, spasms and swelling. Hand Dominance: right. Additional information: sister with lupus. Lab results Hb 10.6, MCV 77, reports heavy period for 2-3 daysPositive H.pylori hypertension It is currently a new diagnosis. Risk factors include family history HTN, gout or CAD and obesity. The hypertension is exacerbated by stress. Pertinent negatives include chest pain, fatigue, headache, hematuria, irregular heartbeat/palpitations and nausea. GERD The severity of the problem is moderate. The problem has not changed. The symptoms are constant. The location is epigastric. The patient reports radiation to the none. The quality of the pain is sharp. Symptoms are not aggravated by alcohol. Associated symptoms include heartburn. Pertinent negatives include fever, flank pain, hematuria and nausea. GERD The severity of the problem is mild. Pain scale: 0/10. The symptoms are intermittent. The location is epigastric. The quality of the pain is burning. These symptoms occur after meals. Symptoms are not aggravated by alcohol. Pertinent negatives include dyspnea, nausea, vomiting and weight loss. Establish care No chronic medic al history but requests screening labs. Anemia The symptom(s) b nicole gradually. The patient describes it as a severity of moderate-severe. Type of anemia was acquired for deficiency anemia (vitamin B12 deficient). The problem is stable. Relevant medical history includes history of anemia and menorrhagia. Pertinent negatives include abdominal pain, amenorrhea, anorexia, black tarry stools, bleeding gums, bone pain, brittle nails, chest pain, chills, cold intolerance, constipation, dark urine, decreased libido, depression, diarrhea, dizziness, dyspnea, fatigue, gait disturbance, headache, hypotension, impaired sense of smell, impotence, irritability, jaundice, joint pain, nausea, numbness, pagophagia, pallor, pica, pigment change, sore mouth, sore tongue, syncope, tachycardia, tingling, vomiting, weakness and weight loss. Follow Up of anemia Type of anem ia was acquired for deficiency anemia (vitamin B12 deficient). The problem is stable. Relevant medical history includes history of anemia. Pertinent negatives include abdominal pain, amenorrhea, anorexia, black tarry stools, bleeding gums, bone pain, brittle nails, chest pain, chills, cold intolerance, constipation, dark urine, decreased libido, depression, diarrhea, dizziness, dyspnea, fatigue, gait disturbance, headache, hypotension, impaired sense of smell, impotence, irritability, jaundice, joint pain, nausea, numbness, pagophagia, pallor, pica, pigment change, sore mouth, sore tongue, syncope, tachycardia, tingling, vomiting, weakness and weight loss. Additional information: Pt has been taking integra plus daily. Pt has more energy and has been working out frequently. Chronic bone pain is significantly reduced however, anemia has not changed much. Will start vit B12 injections today. Follow up visit for Lab Results Referral Request for Mammography Preventive exam Instructions Date Instruction Additional Infor kaley Patient to Follow up with PCP in family at [facility] concerning blood pressurePatient encouraged to decrease salt intakeER precautions given Related to Elevated blood pressure reading Not at goal today Co ntinue Blood pressure medication/s as prescribedCheck blood pressure once or twice daily write it down and bring next visitAvoid canned food, and use low salt diet.Follow up for blood pressure as scheduled in 3 weeks with labs prior or earlier if continue to be more than 140/90 Related to Essential hypertension discussed mostly par t of the recovery from pneumonia Benzonatate as needed Related to Dry cough ER follow up doing better Relate d to Hospital discharge follow-up Giving encouragement to exercise Related to Body mass index [BMI] 32.0-32.9, adult Dietary management e ducation, guidance, and counseling Related to Body mass index [BMI] 32.0-32.9, adult Transvaginal US for [facility] per patient preference ER precautions given Related to Menorrhagia with regular cycle Safe sex practices d iscussed with patient Different barrier methods of control were also discussed patient verbalized understanding Related to Encounter for other general counseling and advice on contraception Patient encouraged t o eat a healthy diet consisting of fruits and vegetablesEncouraged to maintain a healthy weight and exercises at least 30 minutes on most days Education and counseling provided Related to Body mass index [BMI] 32.0-32.9, adult Referred to urogynecology Relate d to Urinary incontinence, mixed Dietary needs education Related to Body mass index [BMI] 32.0-32.9, adult due to uterine fibro idsadvise to start taking ferrous sulfate daily again as hgb has decreased when she stopped taking iron Related to Iron deficiency anemia, unspecified A healthy weight hel ps your body use insulin properly. Eat a balanced diet. This may help you prevent or delay diabetes. Try to eat an even amount of carbohydrate ( Pasta- Bread -Rice) throughout the day. This can help you avoid sudden peaks in blood sugar. Get at least 30 minutes of exercise on most days of the week. Exercise helps control your blood sugar. It also helps you maintain a healthy weight. Walking is a good choice. You also may want to do other activities, such as running, swimming, cycling, or playing tennis or team sports. Related to Prediabetes Advised to maintain a low-fat, low-cholesterol diet. Related to Dyslipidemia Not Controlled in of fice but controlled at home averageContinue Blood pressure medication/s as prescribedCheck blood pressure once or twice daily write it down and bring next visitAvoid canned food, and use low salt diet.RTC if continue to be more than 140/90 Related to Essential hypertension Giving encouragement to exercise Related to Body mass index [BMI] 33.0-33.9, adult Dietary management e ducation, guidance, and counseling Related to Body mass index [BMI] 33.0-33.9, adult improving continue i gary sup 3 times daily Related to Iron deficiency anemia, unspecified A healthy weight hel ps your body use insulin properly. Eat a balanced diet. This may help you prevent or delay diabetes. Try to eat an even amount of carbohydrate ( Pasta- Bread -Rice) throughout the day. This can help you avoid sudden peaks in blood sugar. Get at least 30 minutes of exercise on most days of the week. Exercise helps control your blood sugar. It also helps you maintain a healthy weight. Walking is a good choice. You also may want to do other activities, such as running, swimming, cycling, or playing tennis or team sports. Related to Prediabetes ControlledContinue B lood pressure medication/s as prescribedCheck blood pressure once or twice daily write it down and bring next visitAvoid canned food, and use low salt diet.Follow up for blood pressure in 3 months Related to Essential hypertension Giving encouragement to exercise Related to Body mass index [BMI] 33.0-33.9, adult Dietary management e ducation, guidance, and counseling Related to Body mass index [BMI] 33.0-33.9, adult Patient encouraged t o eat a healthy diet consisting of fruits and vegetablesEncouraged to maintain a healthy weight and exercises at least 30 minutes on most days Education and counseling provided Related to Body mass index [BMI] 32.0-32.9, adult Lifestyle education regarding di et Related to Body mass index [BMI] 32.0-32.9, adult test for eradication is negative . Related to H. 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 Related to Encounter for gynecological examination (general) (routine) without abnormal findings due to uterine fibro idsadvise to start taking ferrous sulfate daily again as hgb has decreased when she stopped taking ironrecheck cbc prior to next visitrtc in 6wk Related to Iron deficiency anemia, unspecified uncontrolledon hctz 12.5mg and amlodipine 5mgdash diet and 150min/wk recommendedincrease amlodipine to 10mg dailykeep bp log bring tto f/urtc in 6wk Related to Essential hypertension copmleted treatment first week of Jul, check h pylori for test of eradication prior to next visit Related to H. 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 pylori infection discussed tvus resul tsanemia has improved 10.7 from 7.8continue iron tablet dailygyn referral is pendingdiscussed contraception management to help regulate blood flow, patient does not wish to start any methods would like to first discuss with gynrtc in 2-3mo w/ labs prior to recheck anemia Related to Fibroids Well controlled, con tinue current medication.Continue exercise goal of 150min per week and DASH diet. Related to Essential hypertension Giving encouragement to exercise Related to Body mass index [BMI] 32.0-32.9, adult Dietary management e ducation, guidance, and counseling Related to Body mass index [BMI] 32.0-32.9, adult on famotidine 20mg d ailycheck for h pylori avoid spicy foods and trigger foodsdiscuss ppi tx at f/u Related to Chronic GERD new pt presenting fo r annual physical examhx of iron deficiency anemiamammogram prefers biennial, recommend repeat Julap smear up to date per chart reviewfobt r3qcmiv screening labstdap todayinfluenza vaccine recommend during flu seasonrtc in 1mo Related to Annual physical exam history of fibroids; but reports periods are pbx supervisor than beforeua unremarkable, no bloodfobt x3 orderedtvus orderedrecheck cbc and iron panel prior to f/udiscussed hgb is severely low and needs to take iron daily, sending ferrous gluconate Related to Iron deficiency anemia, unspecified iron deficiency anemia type start premarin topical Related t o Vaginal dryness Giving encouragement to exercise Related to Body mass index [BMI] 32.0-32.9, adult Dietary management e ducation, guidance, and counseling Related to Body mass index [BMI] 32.0-32.9, adult increase iron rich f ood and iron supplement will recheck labs Related to Mild anemia ControlledContinue B lood pressure medication/s as prescribedCheck blood pressure once or twice daily write it down and bring next visitAvoid canned food, and use low salt diet.Follow up for blood pressure in 6 months with labs prior and as needed Related to Essential hypertension Dietary management e ducation, guidance, and counseling Related to Body mass index [BMI] 32.0-32.9, adult Giving encouragement to exercise Related to Body mass index [BMI] 32.0-32.9, adult Improvingcontinue ir on supplement twice daily Related to Iron deficiency anemia, unspecified Not controlledWill a dd HCZContinue amlodipineTake Blood pressure medication/s as prescribedCheck blood pressure once or twice daily write it down and bring next visitAvoid canned food, and use low salt diet.Follow up for blood pressure in 1 month Related to Essential hypertension Giving encouragement to exercise Related to Body mass index [BMI] 32.0-32.9, adult *Patient aware of co unseling services available Related to Encounter for screening for other disorder Dietary management e ducation, guidance, and counseling Related to Body mass index [BMI] 32.0-32.9, adult Watch your weight. A healthy weight helps your body use insulin properly. Eat a balanced diet. This may help you prevent or delay diabetes. Try to eat an even amount of carbohydrate ( Pasta- Bread -Rice) throughout the day. This can help you avoid sudden peaks in blood sugar. Get at least 30 minutes of exercise on most days of the week. Exercise helps control your blood sugar. It also helps you maintain a healthy weight. Walking is a good choice. You also may want to do other activities, such as running, swimming, cycling, or playing tennis or team sports. Related to Prediabetes Start iron supplement 3 times da yovani Related to Iron deficiency anemia, unspecified Discussed blood pres sure not at goal 130/80Continue Blood pressure medication/s as prescribedCheck blood pressure once or twice daily write it down and bring next visitAvoid canned food, and use low salt diet.Follow up for blood pressure in 3 weeks to recheck and bring log sheet if continue to be high will add another blood pressure medication Related to Essential hypertension Advised to maintain a low-fat, low-cholesterol diet. Related to Dyslipidemia Dietary management e ducation, guidance, and counseling Related to Body mass index [BMI] 32.0-32.9, adult Giving encouragement to exercise Related to Body mass index [BMI] 32.0-32.9, adult Advised to maintain a low-fat, low-cholesterol diet. Related to Dyslipidemia Improvingcontinue ir on supplement twice daily Related to Iron deficiency anemia, unspecified Watch your weight. A healthy weight helps your body use insulin properly. Eat a balanced diet. This may help you prevent or delay diabetes. Try to eat an even amount of carbohydrate ( Pasta- Bread -Rice) throughout the day. This can help you avoid sudden peaks in blood sugar. Get at least 30 minutes of exercise on most days of the week. Exercise helps control your blood sugar. It also helps you maintain a healthy weight. Walking is a good choice. You also may want to do other activities, such as running, swimming, cycling, or playing tennis or team sports. Related to Prediabetes ControlledContinue B lood pressure medication/s as prescribedCheck blood pressure once or twice daily write it down and bring next visitAvoid canned food, and use low salt diet.Follow up for blood pressure in 6 months Related to Essential hypertension Giving encouragement to exercise Related to Body mass index [BMI] 32.0-32.9, adult Dietary management e ducation, guidance, and counseling Related to Body mass index [BMI] 32.0-32.9, adult negative cytologyWil l repeat in 3 yearsreturn if any abnormal vaginal discharge or bleeding Related to Encounter to discuss test results Controlled per home reading and baseline in office reading Continue Blood pressure medication/s as prescribedCheck blood pressure once or twice daily write it down and bring next visitAvoid canned food, and use low salt diet.Follow up in 3 months with labs prior Related to Essential hypertension Follow up in 3 weeks for results Related to Encounter for screening for malignant neoplasm of cervix start daily iron tabs with each meal Related to Other iron deficiency anemia Start Food diaryWatc h your weight. A healthy weight helps your body use insulin properly. Eat a balanced diet. This may help you prevent or delay diabetes. Try to eat an even amount of carbohydrate ( Pasta- Bread -Rice) throughout the day. This can help you avoid sudden peaks in blood sugar. Get at least 30 minutes of exercise on most days of the week. Exercise helps control your blood sugar. It also helps you maintain a healthy weight. Walking is a good choice. You also may want to do other activities, such as running, swimming, cycling, or playing tennis or team sports. Related to Prediabetes ControlledContinue B lood pressure medication/s as prescribedCheck blood pressure once or twice daily write it down and bring next visitAvoid canned food, and use low salt diet. Related to Essential hypertension Giving encouragement to exercise Related to Body mass index [BMI] 32.0-32.9, adult Dietary management e ducation, guidance, and counseling Related to Body mass index [BMI] 32.0-32.9, adult Will check labsOkay to take Tylenol arthritis advised to avoid ibuprofen Related to Multiple joint pain Will start amlodipin eTake Blood pressure medication/s as prescribedCheck blood pressure once or twice daily write it down and bring next visitAvoid canned food, and use low salt diet.Follow up next available for PAP smear and lab results Related to Essential hypertension Giving encouragement to exercise Related to Body mass index [BMI] 33.0-33.9, adult Dietary management e ducation, guidance, and counseling Related to Body mass index [BMI] 33.0-33.9, adult Start iron tx 3 times daily Rela w[place] to Iron deficiency anemia, unspecified Discussed lab result s and treatment plan Related to H. pylori infection New diagnosisWill st art lisinoprilTake Blood pressure medication/s as prescribedCheck blood pressure once or twice weekly write it down and bring next visitAvoid canned food, and use low salt diet.Follow up for blood pressure in 2 weeks Related to Essential hypertension Giving encouragement to exercise Related to Body mass index (BMI) 31.0-31.9, adult Dietary management e ducation, guidance, and counseling Related to Body mass index (BMI) 31.0-31.9, adult Avoid spicy and mariajose to based foodWill check for HpyloriFollow up in 2 weeks for lab results Related to Gastroesophageal reflux disease, esophagitis presence not specified Giving encouragement to exercise Related to Body mass index (BMI) 31.0-31.9, adult Dietary management e ducation, guidance, and counseling Related to Body mass index (BMI) 31.0-31.9, adult Discussed reduced in take of saturated fats (red meat, fried foods, pork, organ meats) and and increase in dietary fiber (oatmeal, 100% whole wheat bread, fruits, vegetables) Exercise encouraged 20-30 min 3-4 times a week (walking, swimming, dancing, etc) Related to Other obesity due to excess calories RTC 1 month for repe at B12 injectionLabs in 2 months with PCP Related to Pernicious anemia Keep follow up appointments with PCP Related to Pernicious anemia Giving encouragement to exercise Related to Body mass index (BMI) 30.0-30.9, adult Dietary management e ducation, guidance, and counseling Related to Body mass index (BMI) 30.0-30.9, adult nascobal weekly unle ss insurance will not cover it then return here monthly for vit B 12 injections Related to Pernicious anemia Giving encouragement to exercise Related to Body mass index (BMI) 30.0-30.9, adult Dietary management e ducation, guidance, and counseling Related to Body mass index (BMI) 30.0-30.9, adult Focus on supplements , increasing protein, nuts, and green leafy vegetables. Related to Fatigue Take Integra Plus da yovani Return in 3 months for lab re-check. Go one week before apt and have lab drawn Related to Iron deficiency anemia Take vitamin D once a week on the same day every weekMake time to get in the sun for short peroids of time Related to Vitamin D deficiency Take melatonin with b-vitamins two to three hours before sleep Related to Insomnia Take steroids for on e weekIncrease daily intake of olive oil and garlic Related to Tendonitis Add glucosamine/hailey dritin (500mg) daily to supplements Related to Joint pain Assessments Type Assessment Date No Information
--- NOTE | ~2025-06-12 | CT_ITS ---
CLINICAL HISTORY: PE rule out CTA chest with 3-D postprocessing Comparison: None available Findings: Study quality is adequate for the diagnosis of pulmonary embolism. No pulmonary embolism. Heart size within normal limits. RV/LV ratio is normal. No calcified coronary artery disease. No aortic dissection or aneurysm. No calcified atherosclerotic disease. No lymphadenopathy. Mild increased subpleural reticulation. Subsegmental atelectasis versus linear scarring. Mild amount of clustered ground-glass opacities in the right upper lobe measuring up to 4 mm, likely infectious/inflammatory No pneumothorax or pleural effusion. No acute osseous or soft tissue abnormality. No acute pathology in the imaged portion of the upper abdomen. Low attenuating lesion in the liver measuring 1.8 cm with peripheral nodular enhancement which could be a hemangioma. Impression: No pulmonary embolism. Mild amount of clustered ground-glass opacities in the right upper lobe measuring up to 4 mm, likely infectious/inflammatory. No follow up is required. This document has been electronically signed by: Sallie Sams MD on 06/13/2025 02:25:23
[2025-06-12 21:15] VITALS: BP 131/65; PULSE 67; RESP 16; TEMP 36.6; O2SAT 100; BMI 20.2
--- NOTE | 2025-06-12 21:22 | ECG_ITS ---
Test Reason : ARRHYTHMIA Blood Pressure : */* mmHG Vent. Rate : 58 BPM Atrial Rate : 58 BPM P-R Int : 154 ms QRS Dur : 96 ms QT Int : 416 ms P-R-T Axes : 45 71 57 degrees QTcB Int : 408 ms Sinus bradycardia Incomplete right bundle branch block Borderline ECG No previous ECGs available Referred By: Generic ED Physician Electronically Signed By: MICK OSORIO
[2025-06-12 22:09] LABS: MANUAL DIFF FLAG NO
[2025-06-12 22:18] LABS: Hematocrit 36.9 % (37.0-47.0); Hemoglobin 12.6 g/dl (12.0-16.0); Imm Gran Abs Auto 0.02 X10*3/uL (0.00-0.03); Imm Gran Pct Auto 0.4 % (0.0-0.4); Lymphocytes Absolute Auto 2.8 X10*3/uL (1.2-4.9); Mean Corpuscular HGB Conc 34.1 g/dl (31.0-35.0); Mean Corpuscular Hemoglobin 30.4 pg (27.0-33.0); Mean Corpuscular Volume 88.9 fL (80.0-98.0); NRBC Abs Auto 0.000 X10*3/uL (0.0-0.012); NRBC Pct Auto 0.0 /100WBC (0.0-0.2); Platelet Count 239 X10*3/uL (160-400); Red Blood Count 4.15 X10*6/uL (4.20-5.50); White Blood Count 5.6 X10*3/uL (4.8-10.8)
--- OUTSIDE RECORDS SUMMARY | 2025-06-12 22:30 | XMS_ITS | Encounter Summary ---
Author Organization Located Within [facility] Address [address] [place] [address] [place] [address] Phone Care Team Providers Care Terminal Operator Name Role Phone Betzy Nails MD Unavailable Betzy Nails MD Primary Care Provider Betzy Nails MD Unavailable Betzy Nails MD Primary Care Provider [phone] Solange Pollack MD Unavailable [phone] Encounter Details Date Type Department Care Team (Late st Contact Info) Description 04/12/2022 Transcribe Orders [facility] [address] [place] [address] Selvin Mehta MD [address] [place] [address] [id number] [email or web address] Social History Tobacco Use Types Packs/Day Years Used Date Smoking Tobacco: Never Smokeless Tobacco: Never Comments:Prior marijuana Comments Unknown Sex and Gender Information Value Date Recorded Sex Assigned at Female 12/29/2020 3:18 PM EDT Legal Sex Female 9:26 PM EDT Gender Identity Genderqueer/Queer 12/29/2020 3:1 8 PM EDT Sexual Orientation Queer 12/29/2020 3: 18 PM EDT documented as of this encounter Plan of Treatment Upcoming Encounters Date Type Department Care Team (Late Contact Info) Description 06/24/2025 6:45 AM EDT Office Visit [address] [address] Betzy Nails MD [address] [place] [address] [email or web address] Nhung Odom, PT [address] [place] [address] [email or web address] 06/29/2025 8:15 AM EDT Office Visit [address] [address] Selvin Grant MD [address] [place] [address] Nhung Odom, PT [address] [place] [address] [email or web address] 07/01/2025 4:45 PM EDT Office Visit [address] [address] Betzy Nails MD [address] [place] [address] [email or web address] Nhung Odom, PT [address] [place] [address] [email or web address] 07/06/2025 4:45 PM EDT Office Visit [address] [address] Betzy Nails MD [address] [place] [phone] [email or web address] Nhung Odom, PT [address] [place] [address] [email or web address] 07/09/2025 12:00 PM EDT Office Visit [address] [address] Betzy Nails MD [address] [place] [phone] [email or web address] Nhung Odom, PT [address] [place] [address] 07/13/2025 4:00 PM EDT Office Visit [address] [address] Betzy Nails MD [address] [place] [address] [email or web address] Nhung Odom, PT [address] [place] [address] [email or web address] 07/16/2025 12:00 PM EDT Office Visit [address] [address] Betzy Nails MD [address] [place] [address] [email or web address] Nhung Odom, PT [address] [place] [address] 07/27/2025 8:15 AM EDT Office Visit [address] [address] Selvin Grant MD [address] [place] [address] [email or web address] Nhung Odom, PT [address] [place] [address] [email or web address] 08/02/2025 3:15 PM EDT Office Visit [facility] [address] [place] [address] Selvin Grant MD [address] [place] [address] [phone] Corinnaphill Nhung, PT [address] [place] [address] 08/05/2025 1:45 PM EDT Office Visit [facility] [address] [place] [address] Selvin Grant MD [address] [place] [address] [phone] Nhung Odom, PT [address] [place] [address] documented as of this encounter Visit Diagnoses Not on filedocumented in this encounter Care Teams Terminal Operator Relationship Specialty Start Date End Date Betzy Nails MD PCP - General 10/17/17 01/08/24 Betzy Nails MD [address] [place] [address] PCP - General Family Medicine 01/09/24 Betzy Nails MD Historical LMR Provider 08/01/17 Betzy Nails MD [address] [place] [address] [email or web address] Insurance Assigned Provider 02/15/18 06/22/23 Solange Pollack MD [address] [place] [address], [place] [address] [email or web address] Obstetrics and Gynecology 02/27/24 documented as of this encounter Additional Source Comments The information contained in this document represents components of the legal health record. It is not the complete legal health record.Located Within [facility]
--- OUTSIDE RECORDS SUMMARY | 2025-06-12 22:30 | XMS_ITS | Encounter Summary ---
Author Organization [facility] Address [address] [place] [address] [place] [phone] Phone Care Team Providers Care Line Person Name Role Phone Betzy Nails MD Unavailable [phone] Betzy Nails MD Primary Care Provider [phone] Betzy Nails MD Unavailable [phone] Betzy Nails MD Primary Care Provider [phone] Solange Pollack MD Unavailable [phone] Encounter Details Date Type Department Care Team (Late st Contact Info) Description 04/24/2023 Procedure Pass OR Admitting Dept - Virtual Department [address] [place] [address] Social History Tobacco Use Types Packs/Day Years Used Date Smoking Tobacco: Never Smokeless Tobacco: Never Comments:Prior marijuana Alcohol Use Standard Drinks/Week Comments Yes 3 (1 standard drink = 0.6 oz pur e alcohol) Education Answer Date Recorded Are you interested in more education? Not on ki e 02/08/2023 Are you concerned about learning? Not on file 02/08/2023 No 02/08/2023 No 02/08/2023 Digital Access Answer Date Recorded No 03/11/2023 No 03/11/2023 Reliable internet access at home? Not on file 03/11/2023 Device with a working camera? Not on file Intimate Partner Violence Answer Date R ecorded Are you denied basic needs s uch as food, clothing, or medical care? No 04/24/2023 In the past 12 months have y ou been in a relationship with a person who hurts, threatens, or tries to control you? No 04/24/2023 Are you denied basic needs s uch as food, clothing, or medical care? No 04/24/2023 In the past 12 months have y ou been in a relationship with a person who hurts, threatens, or tries to control you? No 04/24/2023 Comments No Sex and Gender Information Value Date Recorded Sex Assigned at Female 12/29/2020 3:18 PM EDT Legal Sex Female 9:26 PM EDT Gender Identity Genderqueer/Queer 12/29/2020 3:1 8 PM EDT Sexual Orientation Queer 12/29/2020 3: 18 PM EDT documented as of this encounter Functional Status * Calculated C-SSRS Risk Score (Lifetime/Recent) Answer Date of Assessment Author No Risk Indicated 04/24/2023 2:12 PM EDT Teo Jeter RN * [place] Suicide Severity Rating Scale (Screener/Recent Self-Report) Question Answer Date of Assessment Author 1. Wish to be (Past 1 Month) No 023 2:12 PM EDT Stephanie Jeter RN 2. Non-Specific Active Suici dominique Thoughts (Past 1 Month) No 04/24/2023 2:12 PM EDT Stephanie Jeter RN 6. Suicidal Behavior (Lifetime) No 3 2:12 PM EDT Stephanie Jeter RN documented as of this encounter Plan of Treatment Upcoming Encounters Date Type Department Care Team (Late st Contact Info) Description 06/24/2025 6:45 AM EDT Office Visit [address] [address] Betzy Nails MD [address] [place] [address] Nhung Odom, PT [address] [place] [address] 06/29/2025 8:15 AM EDT Office Visit [address] [address] Selvin Grant MD [address] [place] [address] CorinnaNhung pollock, PT [address] [place] [address] 07/01/2025 4:45 PM EDT Office Visit [address] [address] Betzy Nails MD [address] [place] [address] Nhung Odom, PT [address] [place] [address] 07/06/2025 4:45 PM EDT Office Visit [address] [address] Betzy Nails MD [address] [place] [address] Nhung Odom, PT [address] [place] [address] 07/09/2025 12:00 PM EDT Office Visit [address] [address] Betzy Nails MD [address] [place] [address] Nhung Odom, PT [address] [place] [address] 07/13/2025 4:00 PM EDT Office Visit [place] [address] Betzy Nails MD [address] [place] [address] Nhung Odom, PT [address] [place] [address] 07/16/2025 12:00 PM EDT Office Visit [address] [address] Betzy Nails MD [address] [place] [address] Nhung Odom, PT [address] [place] [address] 07/27/2025 8:15 AM EDT Office Visit [address] [address] Selvin Grant MD [address] [place] [address] Nhung Odom, PT [address] [place] [address] 08/02/2025 3:15 PM EDT Office Visit [address] [address] Selvin Grant MD [address] [place] [address] Nhung Oodm, PT [address] [place] [address] 08/05/2025 1:45 PM EDT Office Visit [facility] [address] [place] [address] Selvin Grant MD [address] [place] [address] [email or web address] Ilene Nhung, PT [address] [place] [address] documented as of this encounter Visit Diagnoses Not on filedocumented in this encounter Care Teams Line Person Relationship Specialty Start Date End Date Betzy Nails MD [email or web address] PCP - General 10/17/17 01/08/24 Betzy Nails MD [address] [place] [address] PCP - General Family Medicine 01/09/24 Betzy Nails MD [email or web address] Historical LMR Provider 08/01/17 Betzy Nails MD [address] [place] [address] [email or web address] Insurance Assigned Provider 02/15/18 06/22/23 Solange Pollack MD [address] [facility], [address] [place] [address] [email or web address] Obstetrics and Gynecology 02/27/24 documented as of this encounter Additional Source Comments The information contained in this document represents components of the legal health record. It is not the complete legal health record.[facility]
--- OUTSIDE RECORDS SUMMARY | 2025-06-12 22:30 | XMS_ITS | Clinical Summary ---
Author Organization [facility] Address [address] [place] [address] Phone Care Team Providers Care Teradata Developer Name Role Phone Betzy Nails MD Unavailable [phone] Betzy Nails MD Primary Care Provider Solange Pollack MD Unavailable [phone] Allergies Active Allergy Reactions Criticality Noted Date Comments Adhesive Itching,Swelling,Maverick matitis,Shade h,Rash with Blisters High 10/14/1999 Citalopram Anxiety,Palpitations Low 01/10/2021 Fluticasone Anxiety,Cough Low 12/13/2021 Latex Rash Low 04/05/2023 Budesonide-Formoterol Mental Status Change Low 11/2021 Tetracycline GI Upset Low 01/10/2021 Medications FLUoxetine (PROZAC) 10 MG tablet Take 10 mg by mouth daily. States taking 5 mg daily Active LORazepam (ATIVAN) 0.5 MG tablet Take 0.5 mg by mouth every 6 (six) hours as needed for anxiety. Prn for sleep Active albuterol 90 mcg/actuation inhaler Inhale 2 puffs into the lungs every 6 (six) hours as needed for wheezing. Active hydrOXYzine (ATARAX) 25 MG tablet Take 25 mg by mouth nightly at bedtime as needed. 01/22/2023 Active amoxicillin-cla vulanate (AUGMENTIN) 875-125 mg per tablet Take 1 tablet by mouth 2 (two) times a day. 09/24/2023 Active benzonatate (TESSALON) 100 MG capsule TAKE 1 CAPSULE BY MOUTH THREE TIMES A DAY NEEDED NOT COVD 09/27/2023 Active Active Problems Problem Noted Date Diagnosed Date Menorrhagia with regular cycle 04/24/2023 Postoperative state 04/24/2023 Leiomyoma of uterus 04/24/2023 Abnormal uterine bleeding 08/09/2022 Overview (08/09/2022): Monthly heavy bleeding, up to 6 to 10 days with 2 or 3 being heavy. No success with progestin only pill in the past. Wants to avoid any IUD. Assessment & Plan (08/09/2022 6:42 PM EDT): Discussed various treatment options, will try the lowest dose estrogen containing oral contraceptive. Depending on the results of the ultrasound, may be a candidate for uterine artery embolization or possibly endometrial ablation. For now, a surgical approach is not desired Uterine leiomyoma 08/09/2022 Overview (08/09/2022): Causing some symptoms related to mass-effect, including urine frequency, sense of pressure especially with menses, and perception of this abdominally on self palpation Assessment & Plan (01/03/2023 7:44 PM EDT): US today confirms increase in uterine size/fibroids compared to prior US in 2020 and 2014. Recommend total abdominal hysterectomy/bilateral salpingectomy for definitive management. Reviewed that OCPs may stabilize bleeding in the short-term but this will not impact associated bulk symptoms. Oral Mosquera previously discussed Lupron with Dr. Sheppard - agree that this could be considered again for short term symptom control but ultimately will need hyst. All questions answered. Oral Mosquera would like a bit more time to consider this recommendation and decide on timing. They will reach out to the office when ready for scheduling. Assessment & Plan (08/09/2022 6:41 PM EDT): Overall size of the uterus is suspected to be small based on abdominal exam only. Recommend ultrasound. A sonohysterogram would be ideal because of the heavy monthly bleeding, they prefer starting with a regular gynecological ultrasound Mild persistent asthma without complication 11/2021 Assessment & Plan (12/13/2021 12:22 PM EST): By history, mild persistent asthma manifesting as cough variant asthma with additional exercise-induced bronchoconstriction superimposed. Recent worsening in the setting of COVID-19 infection, but currently feels closer to baseline. Ongoing symptoms indicating use of daily controller medicine. Previous intolerance to multiple inhalers, including ICS/LABA and ICS alone. Not aware has tried Mandi nor leukotriene inhibitors. RECOMMENDATION: SAMPLE of low-dose Spiriva Respimat provided. Instructions on use provided. Start with 1 inhalation once daily, rinse gargle and spit after use. If no significant side effects, such as dry mouth, can try increasing to 2 inhalations once daily. Monitor for improvement in daily as well as exercise-induced cough. Given combination of allergic asthma, seasonal rhinoconjunctivitis, and exercise-induced bronchoconstriction, would likely benefit from trial of leukotriene inhibitor therapy. We discussed potential side effects, including vivid dreams, rarely nightmares, and mood disturbance such as anxiety and depression. Patient feels that her mood is currently well controlled, and with initiation of very low- dose, can safely proceed. Start montelukast, 2.5 mg nightly. If no significant side effects, but no improvement in cough, can increase to 5 mg daily. Can further increase to a full adult dose of 10 mg daily if tolerates and needed. If ineffective for adverse side effects, could alternatively change to trial of low-dose zafirlukast. Plan for pulmonary function studies in approximately 3 months, after as fully recovered from COVID-19 infection and trial of above therapies Seasonal allergic rhinitis due to pollen 022 Assessment & Plan (12/13/2021 12:18 PM EST): Allergic rhinoconjunctivitis, most prominent with spring tree pollen allergies. No active rhinitis currently on exam. Continue with as needed oral antihistamines as needed. Long COVID 12/13/2021 Overview (12/13/2021): Positive COVID-19 PCR 10/18/2021 Assessment & Plan (12/13/2021 12:23 PM EST): Ongoing mild long COVID symptoms, including fatigue, mild generalized weakness, and brain fog. Worsening asthma symptoms have resolved. No specific therapies indicated at this time, will continue to monitor and hope for gradual ongoing improvement. Encounters Date Type Department Care Team Description 06/04/2025 Transcribe Orders [facility] [address] [place] [address] Shannan Pike Encounter for rehabilitation (Primary Dx) from Last 3 Months Immunizations Immunization Administration Dates Next Due COVID-19 (Pre-08/05) Pfizer Vaccine, Bivalent 12+ 07/31/2022 HPV9 04/13/2022,12/05/2021,10/05/2021 INFLUENZA, SPLIT VIRUS, TRIV ALENT W/ PRESERVATIVE IM 07/31/2021 Influenza Quadrivalent MDCK Preservative Free IM 07/31/2022 Influenza Quadrivalent Preservative Free IM 07/14 Influenza, Unspecified Formulation 07/31/2022 Pneumococcal polysaccharide PPSV23 09/29/2021 Td (adult),2 Lf Tetanus Toxo id, PF, Adsorbed 10/12/2019 Tdap 12/16/2009 Family History Medical History Relation Comments Breast cancer Maternal Aunt Hypertension Mother Breast cancer Paternal Grandmother Relation Status Comments Brother Alive Father Alive Maternal Aunt Alive Mother Alive Paternal Grandmother Sister 1 Alive Sister 2 Alive Social History Tobacco Use Types Packs/Day Years Used Date Smoking Tobacco: Never Smokeless Tobacco: Never Tobacco Cessation:Counseling Given: Not Answered Comments:Prior marijuana Alcohol Use Standard Drinks/Week Comments [...] Orientation Queer 12/29/2020 3: 18 PM EDT Last Filed Vital Signs Vital Sign Reading Time Taken Comments Blood Pressure 124/86 10/03/2023 4:04 PM EST Pulse 81 04/26/2023 9:04 AM EDT Temperature 36.3 C (97.3 F) 04/26/2023 9:04 AM EDT Respiratory Rate 14 04/26/2023 9:04 AM EDT Oxygen Saturation 100% 04/26/2023 9:04 AM EDT Inhaled Oxygen Concentration - - Weight 58.5 kg (129 lb) 10/03/2023 4:04 PM EST Height 165 cm (5' 4.96 ) 05/10/2023 4:32 PM EDT Body Mass Index 21.49 05/10/2023 4:32 PM EDT Plan of Treatment Upcoming Encounters Date Type Department Care Team (Late st Contact Info) Description 06/24/2025 6:45 AM EDT Office Visit [address] [address] Betzy Nails MD [address] [place] [id number] [email or web address] Nhung Odom, PT [address] [place] [address] [email or web address] 06/29/2025 8:15 AM EDT Office Visit [address] [address] Selvin Grant MD [address] [place] [address] Nhung Odom, PT [address] [place] [address] [email or web address] 07/01/2025 4:45 PM EDT Office Visit [address] [address] Betzy Nails MD [address] [place] [address] Nhung Odom, PT [address] [place] [address] [email or web address] 07/06/2025 4:45 PM EDT Office Visit [address] [address] Betzy Nails MD [address] [place] [address] Nhung Odom, PT [address] [place] [address] [email or web address] 07/09/2025 12:00 PM EDT Office Visit [address] [address] Betzy Nails MD [address] [place] [address] Nhung Odom, PT [address] [place] [address] [email or web address] 07/13/2025 4:00 PM EDT Office Visit [address] [address] Betzy Nails MD [address] [place] [address] [email or web address] Nhung Odom, PT [address] [place] [address] [email or web address] 07/16/2025 12:00 PM EDT Office Visit [facility] [address] [place] [address] Betzy Nails MD [address] [place] [address] [email or web address] Nhung Odom, PT [address] [place] [address] [email or web address] 07/27/2025 8:15 AM EDT Office Visit [address] [address] Selvin Grant MD [address] [place] [address] Nhung Odom, PT [address] [place] [address] [email or web address] 08/02/2025 3:15 PM EDT Office Visit [address] [address] Selvin Grant MD [address] [place] [address] [email or web address] Nhung Odom, PT [address] [place] [address] [email or web address] 08/05/2025 1:45 PM EDT Office Visit [address] [place] [address] Selvin Grant MD [address] [place] [address] [email or web address] Nhung Odom, PT [address] [place] [address] [email or web address] Health Maintenance Due Date Last Done Comments DEPRESSION SCREENING 1989 HIV ONE-TIME SCREENING (18-65 YEARS) 1995 MAMMOGRAM 2017 COLOGUARD 2022 COLONOSCOPY 2022 COLORECTAL CANCER SCREENING 2022 FIT TEST 2022 FOBT 2022 SIGMOIDOSCOPY 2022 VIRTUAL COLONOSCOPY 2022 PNEUMOCOCCAL VACCINES (0-49 years) (2 of 2 - PCV) 09/29/2022 09/29/2021 COVID-19 VACCINE ( - season) 2024 07/23/2023, 07/31/2022, 07/31/2021, Additional history exists INFLUENZA VACCINE (#1) 2025 , 07/31/2022, 07/31/2022, Additional history exists PAP SMEAR 04/05/2026 04/05/2023 LIPID PANEL 06/11/2028 06/11/2023 Adult Td,Tdap Booster 10/12/2029 10/12/2019, 010 HEPATITIS C SCREENING Completed 11/03/2021 SMOKING STATUS SCREENING (Once After 26 Yrs) Completed 04/24/2023 HEPATITIS A VACCINES Aged Out No long er eligible based on patient's age to complete this topic HIB VACCINES Aged Out No longer eligi ble based on patient's age to complete this topic MENINGOCOCCAL VACCINES (ACWY) Aged Out No longer eligible based on patient's age to complete this topic MENINGOCOCCAL VACCINES (B) Aged Out N o longer eligible based on patient's age to complete this topic Medical Devices Not on file Procedures Procedure Name Priority Date/Time Associated Diagnosis Comments PAP TEST Routine 04/05/2023 12:00 AM EDT from Last 3 Months or Most Recently Relevant to Health Maintenance Results * Pap Test (04/05/2023 12:00 AM EDT) 04/05/2023 04/08/2023 8:4 4 AM EDT Narrative SEE NARRATIVE - 04/10/2023 9:32 AM EDT [address] [address] [id number] [id number] Armor Crewman: Janell Brown MD CHANGE ANALYST Cytology Report FINAL DIAGNOSIS A. PAP SMEAR (SUREPATH) CE: SPECIMEN ADEQUACY: Satisfactory for evaluation; transformation zone absent/insufficient. INTERPRETATION: NEGATIVE FOR INTRAEPITHELIAL LESION OR MALIGNANCY. Parakeratosis Electronically Signed Out By: MD Chiquita Ramírez CT([facility]) By his/her signature above, the pathologist listed as making the Final Diagnosis certifies that he/she has personally reviewed this case and confirmed or corrected the diagnosis. The Pap test is a screening test primarily for squamous cancers and precursors and has associated false-negative and false-positive results. New technologies such as liquid-based preparations may decrease but will not eliminate all false-negative results. Regular sampling and follow-up of unexplained clinical signs and symptoms are recommended to minimize false negative results. PROCEDURES/ADDENDA HPV Testing (Requested) Ordered Date: 04/08/2023 A. PAP SMEAR (SUREPATH) CE: Human Papilloma Virus Test NEGATIVE for high-risk Human Papilloma Virus types 16, 18, 45 and the Other high risk probe set (Includes 31, 33, 35, 39, 51, 52, 56, 58, 59, 66, 68) Note: Testing performed by [employer] HR-HPV analysis. Clinical correlation is advised. This HPV test was performed at [facility], [address] [place] [address]. This test has been FDA approved for SurePath cervical cytology specimens. The accuracy and precision of this test for all other specimen sources has been verified in the Cytopathology Laboratory of the [facility] and has not been cleared or approved by the U.S. Food and Drug Administration. Clinical correlation is advised. CLINICAL HISTORY Date of Last Menstrual Period: 03-16-2023 Treatment History: Concurrent BXs Other Clinical Conditions: Screening Pap SPECIMEN SOURCE A: PAP SMEAR (SUREPATH) CE Patient Name: ORAL IBRAHIM : 1975 (Age: 48) Sex: F Institution: [facility] Location: [facility] [place] Date of Collection: 04/05/2023 Date of Reported: 04/09/2023 16:32 Results to: Solange Pollack MD us Solange Pollack MD CYTOLOGY ORDERABLES Edited Result - Final SEE NARRATIVE from Last 3 Months or Most Recently Relevant to Health Maintenance Insurance [employer] [facility] [employer] DIRECT [employer] [facility] CONNECTORCARE DIRECT CONNECTORCARE DIRECT CONNECTORCARE DIRECT CONNECTORCARE DIRECT [facility] PLANS [facility] Advance Directives For more information, please contact: [phone] (9AM - 5PM [facility], Saturday-Saturday) Documents on File Type Date Recorded Patient Clearing Distribution Clerk Expl anation Healthcare Proxy 04/29/2023 5:19 PM * Full Code (Latest Code Status on File) Date Activated Date Inactivated Comments 04/24/2023 12:28 PM Question Answer Comments Code Status Confirmed With: Patient Care Teams Teradata Developer Relationship Specialty Start Date End Date Betzy Nails MD [address] [place] [address] [email or web address] PCP - General Family Medicine 01/09/24 Betzy Nails MD [email or web address] Historical LMR Provider 08/01/17 Solange Pollack MD [address] [place] [address], [place] [address] [email or web address] Obstetrics and Gynecology 02/27/24 Additional Source Comments The information contained in this document represents components of the legal health record. It is not the complete legal health record.[facility]
--- OUTSIDE RECORDS SUMMARY | 2025-06-12 22:30 | XMS_ITS | Encounter Summary ---
Author Organization [facility] Address [address] [place] [address] Phone Care Team Providers Care Pony Ride Operator Name Role Phone Betzy Nails MD Unavailable Emily Parker NP Unavailable [phone] Solange Pollack MD Unavailable Betzy Nails MD Primary Care Provider [phone] Betzy Nails MD Unavailable [phone] Betzy Nails MD Primary Care Provider [phone] Solange Pollack MD Unavailable [phone] Encounter Details Date Type Department Care Team (Latest Contact Info) Description 08/31/2021 Transcribe Orders Virtual Department [address] [place] [address] [address] [address] [address] Menorrhagia with regular cycle (Primary Dx) Social History Tobacco Use Types Packs/Day Years Used Date Smoking Tobacco: Former Smokeless Tobacco: Never Comments Unknown Sex and Gender Information Value [...] Description 06/24/2025 6:45 AM EDT Office Visit [address] [address] Betzy Nails MD [address] [place] [phone] Nhung Odom, PT [address] [place] [address] 06/29/2025 8:15 AM EDT Office Visit [address] [address] Selvin Grant MD [address] [place] [address] Nhung Odom, PT [address] [place] [address] 07/01/2025 4:45 PM EDT Office Visit [address] [address] Betzy Nails MD [address] [place] [address] Nhung Odom, PT [address] [place] [address] 07/06/2025 4:45 PM EDT Office Visit [address] [address] Betzy Nails MD [address] [place] [phone] Nhung Odom, PT [address] [place] [address] 07/09/2025 12:00 PM EDT Office Visit [address] [address] Betzy Nails MD [address] [place] [phone] Nhung Odom, PT [address] [place] [address] 07/13/2025 4:00 PM EDT Office Visit [address] [address] Betzy Nails MD [address] [place] [address] Nhung Odom, PT [address] [place] [address] 07/16/2025 12:00 PM EDT Office Visit [address] [address] Betzy Nails MD [address] [place] [address] [phone] Nhung Odom, PT [address] [place] [address] 07/27/2025 8:15 AM EDT Office Visit [address] [address] Selvin Grant MD [address] [place] [phone] Nhung Odom, PT [address] [place] [address] 08/02/2025 3:15 PM EDT Office Visit [facility] [address] [place] [address] Selvin Grant MD [address] [place] [address] Nhung Odom, PT [address] [place] [address] 08/05/2025 1:45 PM EDT Office Visit [facility] [address] [place] [address] Selvin Grant MD [address] [place] [address] Nhung Odom, PT [address] [place] [address] [email or web address] documented as of this encounter Results * US PELVIS TRANSABDOMINAL ONLY (09/05/2021 3:23 PM EST) Anatomical Region Laterality Modality Pelvis, Uterus/Adnexa Ultrasound 09/05/2021 4:28 PM EST Impressions 09/05/2021 4:35 PM EST 1.Enlarged, likely fibroid uterus. At least one new or enlarged 3 cm subserosal mass consistent with a fibroid is visualized. 2.The endometrial stripe is not visualized and may be distorted by fibroids. MRI could be considered for further evaluation if desired. 3.Normal left ovary. Right ovary is not visualized. Narrative 09/05/2021 4:35 PM EST US PELVIS TRANSABDOMINAL ONLY TECHNIQUE: Pelvic Ultrasound Transabdominal. COMPARISON: Pelvic ultrasound 07/29/2015. FINDINGS: The patient declined a transvaginal exam. Uterus: Size: 10.8 cm x 6.6 cm x 5.7 cm. This compares with 7.8 cm x 5.0 cm x 2.8 cm. On 07/29/2015 Uterus is enlarged and has a bulky appearance likely due to multiple ill-defined fibroids on the transabdominal exam. Myometrium: There is an exophytic subserosal mass similar in echogenicity to adjacent uterine parenchyma measuring 3.0 cm x 2.9 cm x 2.9 cm. This is new or significantly enlarged compared with 07/29/2015. Endometrium: The endometrial stripe is not visualized Right adnexa: Ovary: Not visualized. Left adnexa: Ovary: The ovaries normal in size and contains a 1.8 cm x 1.6 and meter follicle. The ovary measures 3.8 cm x 2.1 cm x 1.8 cm. Blood flow is demonstrated to the left ovary. Free fluid: No visible free fluid. Procedure Note Wilfredo Milton MD - 09/05/2021 US PELVIS TRANSABDOMINAL ONLY TECHNIQUE: Pelvic Ultrasound Transabdominal. COMPARISON: Pelvic ultrasound 07/29/2015. FINDINGS: The patient declined a transvaginal exam. Uterus: Size: 10.8 cm x 6.6 cm x 5.7 cm. This compares with 7.8 cm x 5.0 cm x 2.8cm. On 07/29/2015 Uterus is enlarged and has a bulky appearance likely due to multipleill-defined fibroids on the transabdominal exam. Myometrium: There is an exophytic subserosal mass similar in echogenicityto adjacent uterine parenchyma measuring 3.0 cm x 2.9 cm x 2.9 cm. This isnew or significantly enlarged compared with 07/29/2015. Endometrium: The endometrial stripe is not visualized Right adnexa: Ovary: Not visualized. Left adnexa: Ovary: The ovaries normal in size and contains a 1.8 cm x 1.6 and meterfollicle. The ovary measures 3.8 cm x 2.1 cm x 1.8 cm. Blood flow isdemonstrated to the left ovary. Free fluid: No visible free fluid. IMPRESSION: 1.Enlarged, likely fibroid uterus. At least one new or enlarged 3 cmsubserosal mass consistent with a fibroid is visualized. 2.The endometrial stripe is not visualized and may be distorted byfibroids. MRI could be considered for further evaluation if desired. 3.Normal left ovary. Right ovary is not visualized. Sari Tran CN IMG US PELVIS Fi nal Result documented in this encounter Visit Diagnoses Diagnosis Menorrhagia with regular cycle- Primary Menorrhagia with regular cycle documented in this encounter Care Teams Pony Ride Operator Relationship Specialty Start Date End Date Betzy Nails MD PCP - General 10/17/17 01/08/24 Betzy Nails MD [address] [place] [address] PCP - General Family Medicine 01/09/24 Betzy Nails MD Historical LMR Provider 08/01/17 Emily Parker MANAGER INTERFACE [address] [place] [phone] Historical LMR Provider 08/01/17 2 Solange Pollack MD [address] [place] [address] Historical LMR Provider 08/01/17 10/21/21 Betzy Nails MD [address] [place] [address] Insurance Assigned Provider 02/15/18 06/22/23 Solange Pollack MD [address] [facility] [address] [place] [address] [email or web address] Obstetrics and Gynecology 02/27/24 documented as of this encounter Additional Source Comments The information contained in this document represents components of the legal health record. It is not the complete legal health record.[facility]
--- OUTSIDE RECORDS SUMMARY | 2025-06-12 22:30 | XMS_ITS | Encounter Summary ---
Author Organization [facility] Address [address] [place] [address] [place] [id number] Phone Care Team Providers Care Earth Moving Machine Operator Name Role Phone Betzy Nails MD Unavailable [phone] Betzy Nails MD Primary Care Provider [phone] Solange Pollack MD Unavailable [phone] Encounter Details Date Type Department Care Team (Latest Contact Info) Description 07/11/2024 Ancillary Orders [facility], X-Ray - [address] [address] Christiana Robbins MD, MPH [address] [place] [phone] [email or web address] Closed nondisplaced fracture of proximal phalanx of lesser toe of right foot, initial encounter (Primary Dx) Social History Tobacco Use Types [...] Description 06/24/2025 6:45 AM EDT Office Visit [address] [address] Betzy Nails MD [address] [place] [address] Nhung Odom, PT [address] [place] [address] 06/29/2025 8:15 AM EDT Office Visit [address] [address] Selvin Grant MD [address] [place] [address] Nhung Odom, PT [address] [place] [address] 07/01/2025 4:45 PM EDT Office Visit [address] [address] Betzy Nails MD [address] [place] [address] Nhung Odom, PT [address] [place] [address] 07/06/2025 4:45 PM EDT Office Visit [address] [address] Betzy Nails MD [address] [place] [address] Nhung Odom, PT [address] [place] [address] 07/09/2025 12:00 PM EDT Office Visit [address] [address] Betzy Nails MD [address] [place] [address] Nhung Odom, PT [address] [place] [address] 07/13/2025 4:00 PM EDT Office Visit [address] [address] Betzy Nails MD [address] [place] [address] Nhung Odom, PT [address] [place] [address] 07/16/2025 12:00 PM EDT Office Visit [address] [address] Betzy Nails MD [address] [place] [address] Nhung Odom, PT [address] [place] [address] 07/27/2025 8:15 AM EDT Office Visit [address] [address] Selvin Grant MD [address] [place] [phone] Nhung Odom, PT [address] [place] [address] 08/02/2025 3:15 PM EDT Office Visit [address] [address] Selvin Grant MD [address] [place] [address] Nhung Odom, PT [address] [place] [address] 08/05/2025 1:45 PM EDT Office Visit [address] [address] Selvin Grant MD [address] [place] [address] Nhung Odom, PT [address] [place] [address] documented as of this encounter Results * XR Toes 2 or More Views (Right) (07/11/2024 1:13 PM EDT) Anatomical Region Laterality Modality Foot Right Computed Radiogr aphy 07/13/2024 1:44 PM EDT Impressions 07/13/2024 1:45 PM EDT No evidence of acute, displaced fracture or dislocation within the fifth toe. Mild degenerative changes seen at the first MTP joint. Narrative 07/13/2024 1:45 PM EDT XR TOES 2 OR MORE VIEWS (RIGHT) Referring clinician's provided indication for this examination in [facility]: Pain COMPARISON: None Procedure Note Pedro Acevedo MD - 07/13/2024 XR TOES 2 OR MORE VIEWS (RIGHT) Referring clinician's provided indication for this examination in Epic:Pain COMPARISON: None IMPRESSION: No evidence of acute, displaced fracture or dislocation within the fifthtoe. Mild degenerative changes seen at the first MTP joint. us Christiana Robbins MD, MPH IMG XR LOWER EXTREMITY F inal Result documented in this encounter Visit Diagnoses Diagnosis Closed nondisplaced fracture of proximal phalanx of lesser toe of right foot, initial encounter- Primary Closed nondisplaced fracture of proximal phalanx of lesser toe of right foot, initial encounter documented in this encounter Care Teams Earth Moving Machine Operator Relationship Specialty Start Date End Date Betzy Nails MD [address] [place] [phone] PCP - General Family Medicine 01/09/24 Betzy Nails MD Historical LMR Provider 08/01/17 Solange Pollack MD [address] [place] [address], [facility] [[email or web address] [address] [place] [address] [email or web address] Obstetrics and Gynecology 02/27/24 documented as of this encounter Additional Source Comments The information contained in this document represents components of the legal health record. It is not the complete legal health record.[facility]
[2025-06-12 22:35] LABS: Alanine Aminotransferase 14 U/L (0-31); Albumin Level 4.1 g/dL (3.5-5.0); Alkaline Phosphatase 44 U/L (39-117); Anion Gap 9 (12-20); Aspartate Amino Transferase 19 U/L (5-31); Blood Urea Nitrogen 18 mg/dL (9-16); Calcium 8.8 mg/dL (8.4-10.2); Carbon Dioxide 28 mmol/L (22-29); Chloride 106 mmol/L (96-108); Creatinine Clr Calc Pharmacy 78.7; Estimated Glomerular Filt Rate > 60; Lipase 36 U/L (8-78); Magnesium 2.1 mg/dL (1.6-2.6); Potassium 4.1 mmol/L (3.3-5.1); Sodium 139 mmol/L (135-145); Total Protein 6.8 g/dL (6.5-8.0)
--- NOTE | 2025-06-12 22:49 | ED_ITS ---
[facility] - General Adult General Chief complaint: Arrhythmia/Palpitations Stated complaint: palpatations,heart racing,dizziness Time Seen by Provider: 06/12/25 22:10 Source: patient Mode of arrival: ambulatory Limitations: no limitations History of Present Illness ED Provider: Dr. Payne [facility] narrative: This is a 50-year-old female presented hospital today for intermittent palpitations. Patient stated that she is also having some chest pain associated with this. She describes as a sternal chest pressure. Patient stated that she recently had change in her medication and I will. Wellbutrin dosage. She stated that she noted her watched we will have a heart rate of 130 when she is having these palpitations. Denies any nausea vomiting or diarrhea denies any recent illness denies any dysuria. She does complain of some headache as well. Related Data Allergies Allergy/AdvReac Type Severity Reaction Status Date / Time Citalopram Analogues AdvReac Palpitation Verified 06/12/25 21:21 s tetracycline AdvReac Stomach Verified 06/12/25 21:21 Upset Review of Systems 2 Review of Systems: Pertinent review of systems as mentioned in [facility]. All other system otherwise negative. [facility] Past Medical History [facility] Narrative: Medical history as mentioned in [facility] Social History Social History Alcohol intake: current Smoked in Last 30 Days: No Use of substances other than those prescribed or required for medical reasons: No Advance Directives: No Advance Directives Information Provided: No Do you have a plan to hurt others: No Plan Patient : No Physical Exam ED Exam Exam: General: Pleasant, no distress, interacting appropriately Head: Normacephalic, atraumatic ENT: oral mucosa moist, neck supple, no tracheal deviation Cardiovascular: regular rate, regular rhythm, no murmurs, rubbing, gallops Respiratory: CTAB, no wheeze, rales, rhonchi Extremities: No limb pain or swelling, no calf tenderness Neurological: Awake and alert, no facial droop noted Skin: Warm and dry Psychiatric: Appropriate mood and thoughts Vital Signs: Vital Signs - 24 hr 06/12/25 21:15 06/13/25 01:07 Temperature 98 F Pulse Rate 67 69 Respiratory Rate 16 18 Blood Pressure 131/65 137/84 Pulse Oximetry 100 99 Oxygen Delivery Method Room Air Room Air BMI result Body Mass Index 20.2 Medications Administered Discontinued Medications Generic Name Dose Route Start Last Admin Trade Name Freq PRN Reason Stop Dose Admin Acetaminophen 650 mg 08/30/25 22:57 06/12/25 23:18 Acetaminophen 325 Mg Tablet PO 06/12/25 22:58 650 mg ONCE ONE Administration Aspirin 324 mg 06/13/25 00:55 06/13/25 01:03 Aspirin 81 Mg Tab.Chew PO 06/13/25 00:56 324 mg ONCE ONE Administration Sodium Chloride 1,000 mls @ 999 mls/hr 06/12/25 23:00 06/13/25 00:37 Ns IV 06/13/25 00:00 Infused .Q1H1M JAYCE Infusion Iohexol 85 ml 06/13/25 01:24 06/13/25 01:25 Iohexol 350 Mg/Ml 100 Ml Infus..Btl IV 06/13/25 01:25 85 ml ONCE ONE Administration Nitroglycerin 0.4 mg 06/13/25 00:55 06/13/25 01:07 Nitroglycerin 0.4 Mg Tab.Subl SUBLINGUAL 06/13/25 00:56 0.4 mg ONCE ONE Administration Medical Decision Making Medical Decision Making MDM Narrative: This is a 50-year-old female presents to the ER for evaluation of palpitation and intermittent chest pain. She has been feeling dizzy as well and lightheaded. Headache. We will plan to give patient a bolus IV fluid. EKG will be obtained CBC chemistry and troponin will be obtained as well. We will plan to give patient a dose of Tylenol here. We will plan to reassess patient afterward. We will obtain a D-dimer to rule out PE. Patient is low risk 3:14 AM 06/13/2025 (Dr. Juli Combs, D.O.) patient feeling improved, pain totally resolved. CTA is negative. Cardiac enzyme is flat. EKG is unchanged. I suspect this is secondary to her Wellbutrin increase and I discussed this with her at length. Potential for serotonin syndrome discussed. Encouraged to follow up with primary care. Using shared decision making, plan for discharge home to follow-up with primary care and/or specialist. Patient understands and agrees with plan for discharge. Discharged home in stable condition. Differential Diagnosis Differential Diagnoses: The differential diagnosis associated with the presentation includes ACS, cardiac arrhythmia, PE, chest pain, costochondritis Admission/Observation Consideration of admission/observation: Escalation of care including admission/observation considered Lab Data MDM Lab Attestation statement: I reviewed the patient's lab results. 06/12/25 22:01 06/12/25 22:01 Labs: Lab Results 06/12/25 06/12/25 06/13/25 Range/Units 22:01 23:07 02:33 WBC 5.6 (4.8-10.8) X10*3/uL RBC 4.15 L (4.20-5.50) X10*6/uL Hgb 12.6 (12.0-16.0) g/dl Hct 36.9 L (37.0-47.0) % MCV 88.9 (80.0-98.0) fL MCH 30.4 (27.0-33.0) pg MCHC 34.1 (31.0-35.0) g/dl RDW 13.0 (11.0-16.0) % Plt Count 239 (160-400) X10*3/uL MPV 10.2 (9.4-12.3) fL Immature Gran % (Auto) 0.4 (0.0-0.4) % Neut % (Auto) 39.1 L (45-73) % Lymph % (Auto) 49.4 H (20-40) % Graham % (Auto) 9.5 (2-11) % Eos % (Auto) 1.4 (0-4) % Baso % (Auto) 0.2 (0-2) % Lymph # (Auto) 2.8 (1.2-4.9) X10*3/uL Graham # (Auto) 0.5 (0.1-1.2) X10*3/uL Eos # (Auto) 0.1 (0.0-0.4) X10*3/uL Baso # (Auto) 0.0 (0.0-0.2) X10*3/uL Abs Immat Gran (auto) 0.02 (0.00-0.03) X10*3/uL Absolute Neuts (auto) 2.2 (2.0-8.3) x10*3/uL Absolute Nucleated RBC 0.000 (0.0-0.012) X10*3/uL Nucleated RBC % (auto) 0.0 (0.0-0.2) /100WBC D-Dimer High Sensitivty < 150 NG/ML Sodium 139 (135-145) mmol/L Potassium 4.1 (3.3-5.1) mmol/L Chloride 106 (96-108) mmol/L Carbon Dioxide 28 (22-29) mmol/L Anion Gap 9 L (12-20) BUN 18 H (9-16) mg/dL Creatinine 0.76 (0.5-1.4) mg/dL Estim Creat Clear Calc 78.7 Estimated GFR > 60 Random Glucose 109 (60-115) mg/dL Calcium 8.8 (8.4-10.2) mg/dL Magnesium 2.1 (1.6-2.6) mg/dL Total Bilirubin 0.4 (0.0-1.0) mg/dL AST 19 (5-31) U/L ALT 14 (0-31) U/L Alkaline Phosphatase 44 (39-117) U/L Troponin I High Sens < 2.7 < 2.7 (<3.5-17.0) ng/L Total Protein 6.8 (6.5-8.0) g/dL Albumin 4.1 (3.5-5.0) g/dL Lipase 36 (8-78) U/L Beta HCG, Quant < 2 mIU/mL Radiology Impression Discussion of test interpretation with radiology: I have reviewed the radiologist's reading. Radiologist Impression: CTA chest with 3-D postprocessing Comparison: None available Findings: Study quality is adequate for the diagnosis of pulmonary embolism. No pulmonary embolism. Heart size within normal limits. RV/LV ratio is normal. No calcified coronary artery disease. No aortic dissection or aneurysm. No calcified atherosclerotic disease. No lymphadenopathy. Mild increased subpleural reticulation. Subsegmental atelectasis versus linear scarring. Mild amount of clustered ground-glass opacities in the right upper lobe measuring up to 4 mm, likely infectious/inflammatory No pneumothorax or pleural effusion. No acute osseous or soft tissue abnormality. No acute pathology in the imaged portion of the upper abdomen. Low attenuating lesion in the liver measuring 1.8 cm with peripheral nodular enhancement which could be a hemangioma. Impression: No pulmonary embolism. Mild amount of clustered ground-glass opacities in the right upper lobe measuring up to 4 mm, likely infectious/inflammatory. No follow up is required. This document has been electronically signed by: Sallie Sams MD on 06/13/2025 02:25:23 Discharge Plan Discharge Clinical Impression: Palpitations, Acute chest pain Patient Disposition: Home, Self-Care Instructions: Chest Pain (ED), Heart Palpitations (ED) Additional Instructions: DIAGNOSIS & TREATMENT: You were seen in the Emergency Department for your chest pain and high heart rate. We performed laboratory work and chest xray which did not reveal any acute abnormalities that would explain your symptoms. FURTHER CARE: We have not found any emergent physical exam or lab abnormalities that would require admission to the hospital today. Many people who come to the ER with chest pain do not leave with a specific diagnosis at the end of their visit. In the Emergency Department we try to make sure that there is no emergent problem that needs to cardiology consultation or antibiotics right now. This does not mean that your evaluation is complete--please be sure to follow up with your regular doctor as additional testing as an outpatient may be indicated Please be certain to drink plenty of fluids over the next several days. WHEN YOU SHOULD BE SEEN NEXT: Please follow-up with your primary care provider within the next 2-3 days for reevaluation of your symptoms. WHEN TO RETURN TO THE ED: Monitor your symptoms closely and return to the emergency department immediately for any new/worsening symptoms, worsening chest pain, shortness of breath, nausea, vomiting, fevers, chills, night sweats, you are unable to arrange follow-up care, or any other concerning symptoms. Print Language: [place] Zealander
[2025-06-12 23:02] LABS: Troponin-I High Sensitivity < 2.7 ng/L (<3.5-17.0)
[2025-06-12 23:34] LABS: D Dimer High Sensitivity < 150 NG/ML
--- NOTE | 2025-06-13 00:45 | PC.NURSE ---
pt ambulated to the bathroom. back resting comfortably in bed
[2025-06-13 01:07] VITALS: BP 137/84; PULSE 69; RESP 18; O2SAT 99
[2025-06-13] MEDS: iohexoL 350 MG/ML 100 ML INFUS..BTL 85 ML IV (01:25)
--- NOTE | 2025-06-13 01:52 | ECG_ITS ---
Test Reason : CHEST PAIN Blood Pressure : */* mmHG Vent. Rate : 59 BPM Atrial Rate : 59 BPM P-R Int : 162 ms QRS Dur : 94 ms QT Int : 430 ms P-R-T Axes : 40 57 44 degrees QTcB Int : 425 ms Sinus bradycardia Low voltage QRS Incomplete right bundle branch block Cannot rule out Anterior infarct , age undetermined Abnormal ECG When compared with ECG of 12-Jun-2025 21:48, Minimal criteria for Anterior infarct are now Present Referred By: Hannah Payne Electronically Signed By: MICK OSORIO
--- NOTE | 2025-06-13 02:11 | PC.NURSE ---
pt reporting the nitro tab decreased her chest pressure from 6 to 1 on pain scale. aware
[2025-06-13 02:57] LABS: Troponin-I High Sensitivity < 2.7 ng/L (<3.5-17.0)
[2025-06-13 03:18] VITALS: BP 117/62; PULSE 61; RESP 14; TEMP 36.7; O2SAT 100
[2025-06-13 03:28] VITALS: BP 117/62; PULSE 61; RESP 14; TEMP 36.7; O2SAT 100
== END 2025-06-13 03:31 | disposition home or self-care (01) ==
PROVIDERS: Student in an Organized Health Care Education/Training Program; Emergency Provider Emergency Medicine; PCP Family Medicine
DX: I49.9 Cardiac arrhythmia, unspecified (principal); R00.2 Palpitations; R07.89 Other chest pain; R42 Dizziness and giddiness; R11.2 Nausea with vomiting, unspecified; Z79.899 Other long term (current) drug therapy
CPT/HCPCS: 36415; 71275; 80053; 83690; 83735; 84484; 84702; 85025; 85379; 93005; 96360; 99285; Q9967

== ENCOUNTER → 2025-06-12 21:22 | Outpatient (BNV) | payer OTHER, SELFPAY | PROVIDERS: Emergency Provider Emergency Medicine; PCP Family Medicine; Visit Provider Internal Medicine | DX: R00.1 Bradycardia, unspecified (principal); I45.10 Unspecified right bundle-branch block | CPT/HCPCS: 93010 ==

== ENCOUNTER → 2025-06-13 01:00 | Outpatient (BNV) | payer OTHER, SELFPAY | PROVIDERS: Emergency Provider Emergency Medicine; PCP Family Medicine; Visit Provider Radiology Diagnostic Radiology | DX: J98.11 Atelectasis (principal) | CPT/HCPCS: 71275 ==

== ENCOUNTER → 2025-06-13 01:52 | Outpatient (BNV) | payer OTHER, SELFPAY | PROVIDERS: Emergency Provider Emergency Medicine; PCP Family Medicine; Visit Provider Internal Medicine | DX: I45.10 Unspecified right bundle-branch block (principal); R00.1 Bradycardia, unspecified | CPT/HCPCS: 93010 ==